=== PATIENT | female | born 1950 | race Caucasian/White ===

== ENCOUNTER 2019-06-14 20:43 | Inpatient (IN) | payer MEDICARE ==
[2019-06-14] MEDS ORDERED: EPINEPHrine/PF (1:1,000) 1 MG/1 ML INJ SUB-Q ONE (21:03)
[2019-06-14] MEDS ORDERED: ALBUTEROL 2.5 MG/3 ML NEBU IH ONE (21:03)
[2019-06-14] MEDS ORDERED: MIDAZOLAM 2 MG/2 ML INJ IV ONE (21:05)
--- NOTE | 2019-06-14 21:10 | Emergency Department Report ---
ED General Adult HPI - General Chief complaint: Dyspnea/Respdistress Stated complaint: PK Time Seen by Provider: 06/14/19 20:55 Source: patient, family, EMS (verbal report received from EMS. EMS documentation not available at time of chart dictation ), RN notes reviewed, old records reviewed Mode of arrival: Stretcher Limitations: Language Barrier, Physical Limitation - History of Present Illness Initial comments: Primary care Dr.: Dr. Morris The patient is a 68-year-old female. She has requested that family translated for her. She has a history of hypertension. Is no history of reactive airway disease at the family is aware of. She was seen by her primary care doctor earlier on today, for respiratory symptoms, given albuterol, Atrovent, and ceftriaxone. Apparently, patient has been having cough, wheezing and shortness of breath, going on for the past couple days. Shortly after being discharged from her primary care doctor's office, her cough and shortness of breath and wheezing got much worse. Emergency medical services were activated. Patient given albuterol, Atrovent, steroids, magnesium in the field. Upon arrival to the emergency room, patient is tachypneic and tachycardic and appears to be quite anxious. Family denies DVT and pulmonary embolism risk factors. Patient started on BiPAP. She then began to have coughing and posttussive emesis. Recommended switched to high flow high- humidity nasal cannula. Recommended additional medical therapy. After medical therapy and subcutaneous epinephrine, respiratory work greatly improved. Respiratory therapy s still looking to set up high flow high-humidity nasal cannula, however, patient doing clinically well on a nonrebreather with albuterol and Atrovent. Arterial blood gas showed pH of 7.3, PaCO2 in the 50s, PaO2 is 107 Patient looking improved clinically, work of breathing improved, she and family are medical to hospitalization. -: Gradual Quality: other Consistency: other Improves with: medication Worsens with: movement - Related Data Allergies Allergy/AdvReac Type Severity Reaction Status Date / Time aspirin Allergy Unknown Verified 06/14/19 21:28 codeine Allergy Unknown Verified 06/14/19 21:28 ED Review of Systems ROS: Stated complaint: PK Other details as noted in HPI Comment: Unobtainable due to pts medical conditions ED Past Medical Hx - Past Medical History Hx Hypertension: Yes Hx Diabetes: Yes Additional medical history: High Colesterol - Social History Smoking Status: Never Smoker Substance Use Type: None ED Physical Exam - General Limitations: Language Barrier General appearance: in no apparent distress, anxious, in distress, obese - Head Head exam: Present: atraumatic, normocephalic - Eye Eye exam: Present: normal appearance, EOMI - ENT ENT exam: Present: normal exam, normal orophraynx, mucous membranes moist, normal external ear exam - Neck Neck exam: Present: normal inspection, full ROM. Absent: tenderness, meningismus - Respiratory Respiratory exam: Present: wheezes, rhonchi, accessory muscle use. Absent: respiratory distress - Cardiovascular Cardiovascular Exam: Present: normal rhythm, tachycardia, normal heart sounds. Absent: systolic murmur, diastolic murmur, rubs, gallop - GI/Abdominal GI/Abdominal exam: Present: soft. Absent: distended, tenderness, guarding, rebound, rigid, pulsatile mass - Extremities Exam Extremities exam: Present: normal inspection, full ROM, other (2+ pulses noted in the bilateral upper and lower extremities. There is no palpable cord. negative Homans sign. Muscular compartments are soft. The pelvis is stable.). Absent: pedal edema, calf tenderness - Back Exam Back exam: Present: normal inspection, full ROM. Absent: tenderness, CVA tenderness (R), CVA tenderness (L), paraspinal tenderness, vertebral tenderness - Neurological Exam Neurological exam: Present: alert, other (there is no facial droop. Moving 4 extremities spontaneously.) - Psychiatric Psychiatric exam: Present: anxious - Skin Skin exam: Present: warm, dry, intact, normal color. Absent: rash ED Course Vital Signs 06/14/19 06/14/19 06/14/19 20:55 21:05 21:08 Temperature 98.6 F Pulse Rate 118 H Pulse Rate [ Bilateral Throughout] Respiratory 30 H 30 H Rate Respiratory Rate [Bilateral Throughout] Blood Pressure Blood Pressure 228/100 [Left] O2 Sat by Pulse 95 93 93 Oximetry 06/14/19 06/14/19 06/14/19 21:09 21:15 21:30 Temperature Pulse Rate 120 H 122 H 112 H Pulse Rate [ Bilateral Throughout] Respiratory 30 H 37 H 34 H Rate Respiratory Rate [Bilateral Throughout] Blood Pressure 212/116 166/91 Blood Pressure [Left] O2 Sat by Pulse 93 100 Oximetry 06/14/19 06/14/19 06/14/19 21:39 21:45 22:00 Temperature Pulse Rate 106 H 110 H Pulse Rate [ 107 H Bilateral Throughout] Respiratory 24 25 H Rate Respiratory 25 H Rate [Bilateral Throughout] Blood Pressure 162/81 154/83 Blood Pressure [Left] O2 Sat by Pulse 97 97 Oximetry 06/14/19 22:15 Temperature Pulse Rate 114 H Pulse Rate [ Bilateral Throughout] Respiratory 26 H Rate Respiratory Rate [Bilateral Throughout] Blood Pressure 136/67 Blood Pressure [Left] O2 Sat by Pulse Oximetry - Reevaluation(s) Reevaluation #1: 06/14/19 22:15 Patient likely has viral syndrome, and abnormal vital signs likely secondary to physiologic compensation to the aforementioned. Do not suspect bacteremia at this time, and at this point in time, do not believe patient will benefit from 30 mL/kg bolus of IV fluids. We will continue to provide supportive care. Gentle judicious fluids have been ordered. Reevaluation #2: 06/14/19 22:26 Dr Margie Foy to admit ED Medical Decision Making - Lab Data Result diagrams: 06/14/19 21:17 06/14/19 21:11 Vital Signs 06/14/19 06/14/19 06/14/19 20:55 21:05 21:08 Temperature 98.6 F Pulse Rate 118 H Pulse Rate [ Bilateral Throughout] Respiratory 30 H 30 H Rate Respiratory Rate [Bilateral Throughout] Blood Pressure Blood Pressure 228/100 [Left] O2 Sat by Pulse 95 93 93 Oximetry 06/14/19 06/14/19 06/14/19 21:09 21:15 21:30 Temperature Pulse Rate 120 H 122 H 112 H Pulse Rate [ Bilateral Throughout] Respiratory 30 H 37 H 34 H Rate Respiratory Rate [Bilateral Throughout] Blood Pressure 212/116 166/91 Blood Pressure [Left] O2 Sat by Pulse 93 100 Oximetry 06/14/19 21:39 Temperature Pulse Rate Pulse Rate [ 107 H Bilateral Throughout] Respiratory Rate Respiratory 25 H Rate [Bilateral Throughout] Blood Pressure Blood Pressure [Left] O2 Sat by Pulse Oximetry Lab Results 06/14/19 06/14/19 06/14/19 Range/Units 21:11 21:11 21:17 WBC 14.1 H (4.5-11.0) K/mm3 RBC 4.54 (3.65-5.03) M/mm3 Hgb 13.4 (10.1-14.3) gm/dl Hct 42.0 (30.3-42.9) % MCV 93 (79-97) fl MCH 30 (28-32) pg MCHC 32 (30-34) % RDW 15.4 H (13.2-15.2) % Plt Count 207 (140-440) K/mm3 Lymph % (Auto) 14.2 (13.4-35.0) % [place] % (Auto) 7.0 (0.0-7.3) % Eos % (Auto) 3.5 (0.0-4.3) % Baso % (Auto) 0.3 (0.0-1.8) % Lymph # 2.0 (1.2-5.4) K/mm3 [place] # 1.0 H (0.0-0.8) K/mm3 Eos # 0.5 H (0.0-0.4) K/mm3 Baso # 0.0 (0.0-0.1) K/mm3 Seg Neutrophils % 75.0 H (40.0-70.0) % Seg Neutrophils # 10.6 H (1.8-7.7) K/mm3 PT (12.2-14.9) Sec. INR (0.87-1.13) APTT (24.2-36.6) Sec. Sodium 138 (137-145) mmol/L Potassium 3.8 (3.6-5.0) mmol/L Chloride 98.7 (98-107) mmol/L Carbon Dioxide 22 (22-30) mmol/L Anion Gap 21 mmol/L BUN 20 H (7-17) mg/dL Creatinine 0.7 (0.7-1.2) mg/dL Estimated GFR > 60 ml/min BUN/Creatinine Ratio 29 % Glucose 304 H (65-100) mg/dL Lactic Acid 1.70 (0.7-2.0) mmol/L Calcium 8.7 (8.4-10.2) mg/dL Magnesium 3.30 H (1.7-2.3) mg/dL Total Bilirubin 0.50 (0.1-1.2) mg/dL AST 28 (5-40) units/L ALT 24 (7-56) units/L Alkaline Phosphatase 74 (35-129) units/L Total Creatine Kinase 442 H (30-135) units/L Troponin T (0.00-0.029) ng/mL Total Protein 8.4 H (6.3-8.2) g/dL Albumin 4.5 (3.9-5) g/dL Albumin/Globulin Ratio 1.2 % 06/14/19 06/14/19 Range/Units 21:17 21:17 WBC (4.5-11.0) K/mm3 RBC (3.65-5.03) M/mm3 Hgb (10.1-14.3) gm/dl Hct (30.3-42.9) % MCV (79-97) fl MCH (28-32) pg MCHC (30-34) % RDW (13.2-15.2) % Plt Count (140-440) K/mm3 Lymph % (Auto) (13.4-35.0) % [place] % (Auto) (0.0-7.3) % Eos % (Auto) (0.0-4.3) % Baso % (Auto) (0.0-1.8) % Lymph # (1.2-5.4) K/mm3 [place] # (0.0-0.8) K/mm3 Eos # (0.0-0.4) K/mm3 Baso # (0.0-0.1) K/mm3 Seg Neutrophils % (40.0-70.0) % Seg Neutrophils # (1.8-7.7) K/mm3 PT 13.7 (12.2-14.9) Sec. INR 1.04 (0.87-1.13) APTT 29.3 (24.2-36.6) Sec. Sodium (137-145) mmol/L Potassium (3.6-5.0) mmol/L Chloride (98-107) mmol/L Carbon Dioxide (22-30) mmol/L Anion Gap mmol/L BUN (7-17) mg/dL Creatinine (0.7-1.2) mg/dL Estimated GFR ml/min BUN/Creatinine Ratio % Glucose (65-100) mg/dL Lactic Acid (0.7-2.0) mmol/L Calcium (8.4-10.2) mg/dL Magnesium (1.7-2.3) mg/dL Total Bilirubin (0.1-1.2) mg/dL AST (5-40) units/L ALT (7-56) units/L Alkaline Phosphatase (35-129) units/L Total Creatine Kinase (30-135) units/L Troponin T < 0.010 (0.00-0.029) ng/mL Total Protein (6.3-8.2) g/dL Albumin (3.9-5) g/dL Albumin/Globulin Ratio % - EKG Data -: EKG Interpreted by [facility] EKG shows normal: sinus rhythm Rate: tachycardia - EKG Data When compared to previous EKG there are: previous EKG unavailable 06/14/19 22:11 There is no prior EKG available for comparison. The EKG shows a sinus tachycardia, 107 bpm, there is a left axis deviation, there is a QTC that is prolonged, there is a true enlargement, motion artifact, left ventricular hypertrophy, nonspecific T-wave abnormalities. No prior for comparison, EKG is not consistent with ST elevation infarction. - Radiology Data Radiology results: report reviewed, image reviewed Print Report Referring Physician: IRLANDA MCKAY Patient Name: ANTOINETTE RODRIGUEZ Date of : 1950 Sex: Female Report Date: 2019-06-14 Report Status: [place] [address] XRay Report Signed Patient: ANTOINETTE RODRIGUEZ MR# : [id number] : 1950 Acct:[id number] Age/Sex: 68 / F ADM Date: 06/14/19 Loc: ED Attending Dr: Ordering Physician: IRLANDA MCKAY MD Date of Service: 06/14/19 Procedure(s): XR chest 1V ap Accession Number(s): [id number] cc: IRLANDA MCKAY MD Fluoro Time In Minutes: CHEST 1 VIEW INDICATION: Dyspnea COMPARISON: None FINDINGS: Support devices: None Heart: Upper limits of normal to slightly enlarged Lungs/Pleura: No acute pulmonary or pleural findings. IMPRESSION: 1. Borderline cardiomegaly but no overt pulmonary edema or acute pulmonary disease. Signer Name: Homero Mena MD Signed: 06/14/2019 9:27 PM Workstation Name: [id number] Transcribed By: TM Dictated By: Homero Mena MD Electronically Authenticated By: Homero Mena MD Signed Date/Time: 06/14/192126 DD/ 25 - Medical Decision Making Differential diagnosis, including but not limited to: Bronchitis, pneumonia, reactive airway disease Assessment and plan: 68-year-old female with probable viral syndrome and reactive airway disease, requiring albuterol, Atrovent, BiPAP, requests for high flow high-humidity nasal cannula, and close airway observation. No pulmonary embolism or DVT risk factors. ABG reviewed and appreciated. Leukocytosis likely stress reaction secondary to aforementioned respiratory insult. Hospital physician is paged to arrange admission. Critical Care Time: Yes Critical care time in (mins) excluding proc time.: 35 Critical care attestation.: If time is entered above; I have spent that time in minutes in the direct care of this critically ill patient, excluding procedure time. ED Disposition Clinical Impression: Acute respiratory acidosis, Acute bronchitis Disposition: [id number] OP ADMIT IP TO THIS HOSP Is pt being admited?: Yes Condition: Serious Instructions: Acute Bronchitis (ED)
[2019-06-14] MEDS ORDERED: MIDAZOLAM 5 MG/5 ML INJ MDV IV ONE (21:21)
[2019-06-14] MEDS ORDERED: ONDANSETRON 4 MG/2 ML INJ ONE (21:22)
[2019-06-14 21:26] LABS: Basophils % (Auto) 0.3 % (0.0-1.8); Eosinophils # (Auto) 0.5 K/mm3 (0.0-0.4); Eosinophils % (Auto) 3.5 % (0.0-4.3); Hemoglobin 13.4 gm/dl (10.1-14.3); Lymphocytes % (Auto) 14.2 % (13.4-35.0); Mean Corpuscular HGB Conc 32 % (30-34); Mean Corpuscular Volume 93 fl (79-97); Platelet Count 207 K/mm3 (140-440); Red Blood Count 4.54 M/mm3 (3.65-5.03); Red Cell Distribution Width 15.4 % (13.2-15.2)
[2019-06-14] MEDS ORDERED: ONDANSETRON 4 MG/2 ML INJ IV ONE (21:29)
--- NOTE | 2019-06-14 21:31 | XRay Report ---
CHEST 1 VIEW INDICATION: Dyspnea COMPARISON: None FINDINGS: Support devices: None Heart: Upper limits of normal to slightly enlarged Lungs/Pleura: No acute pulmonary or pleural findings. IMPRESSION: 1. Borderline cardiomegaly but no overt pulmonary edema or acute pulmonary disease. Signer Name: Homero Mena MD Signed: 06/14/2019 9:27 PM Workstation Name: [id number]
[2019-06-14 21:40] LABS: INR 1.04 (0.87-1.13)
[2019-06-14 21:41] LABS: Partial Thromboplastin Time 29.3 Sec. (24.2-36.6)
[2019-06-14 21:43] LABS: Alanine Aminotransferase 24 units/L (7-56); Albumin 4.5 g/dL (3.9-5); BUN/Creatinine Ratio 29; Blood Urea Nitrogen 20 mg/dL (7-17); Calcium 8.7 mg/dL (8.4-10.2); Hemolysis Index 5
[2019-06-14] MEDS ORDERED: SODIUM CHLORIDE 0.9% 500 ML 500 ML IV ONE (22:10)
[2019-06-14] MEDS ORDERED: INSULIN REGULAR, HUMAN 100 UNITS/1 ML IV ONE (22:10)
[2019-06-14] MEDS ORDERED: SODIUM CHLORIDE 0.9% 1000 ML 1,000 ML ONE (22:23)
[2019-06-14] MEDS ORDERED: SODIUM CHLORIDE 0.9% 1000 ML 1,000 ML IV ONE (22:24)
[2019-06-14] MEDS ORDERED: IPRATROPIUM 0.02% NEBU 2.5 ML IH ONE ×2 (22:45→23:10)
--- NOTE | 2019-06-14 23:07 | History and Physical Report ---
History of Present Illness Date of examination: 06/14/19 History of present illness: 68-year-old woman with history of hypertension, diabetes, hyperlipidemia comes emergency room complaining of cough x2 weeks. She saw her primary care physician last week Friday who gave her steroids, breathing treatments. Daughter stated the patient did fine for a few days. On Friday her symptoms started again, she had audible wheezing, nonproductive cough, shortness of breath. She took her back to the primary care physician today, she was given 2 breathing treatments and sent home. When she got home that she deteriorated, EMS was called. Patient was given several treatments in the emergency room. PAtient desaturated when I saw her and she was placed on BiPAP. Patient is being admitted for respiratory distress Review of systems Constitutional: no weight loss, chills, fever Ears, eyes, nose, mouth and throat: no nasal congestion, no nasal discharge, no sinus pressure, no vision change, no red eye. Neck: No neck pain or rigidity. Cardiovascular: no palpitations, chest pain Respiratory: + cough, shortness of breath Gastrointestinal: no hematochezia, abdominal pain Genitourinary : no frequency , no hematuria Musculoskeletal: no joint swelling or muscle ache Integumentary: no rash, no pruritis Neurological: no parathesias, no focal weakness Endocrine: no cold or heat intolerance, no polyuria or polydipsia Hematologic/Lymphatic: no easy bruising, no easy bleeding, no gland swelling Allergic/Immunologic: no urticaria, no angioedema. PAST MEDICAL HISTORY: Hypertension, diabetes, hyperlipidemia PAST SURGICAL HISTORY: Hysterectomy SOCIAL HISTORY: Denies alcohol, drugs, tobacco FAMILY HISTORY: Hypertension Medications and Allergies Allergies Allergy/AdvReac Type Severity Reaction Status Date / Time aspirin Allergy Unknown Verified 06/14/19 21:28 codeine Allergy Unknown Verified 06/14/19 21:28 Home Medications Medication Instructions Recorded Confirmed Last Taken Type Losartan [Cozaar] 50 mg PO QDAY 06/15/19 06/15/19 Unknown History Pravastatin Sodium 40 mg PO DAILY 06/15/19 06/15/19 Unknown History Sitagliptin Phos/Metformin HCl 1 each PO BID 06/15/19 06/15/19 Unknown History [Janumet 50-500 mg Tablet] ALBUTEROL Inhaler (OR & NICU) 2 puff IH QID PRN #8.5 gram 06/17/19 Unknown Rx [ProAir HFA Inhaler] Acetaminophen [Acetaminophen TAB] 2 tab PO Q4H PRN #15 tablet 06/17/19 Unknown Rx Benzonatate [Tessalon Perles] 100 mg PO Q8HR PRN #15 capsule 06/17/19 Unknown Rx Budesonide [Pulmicort Respules] 0.5 mg IH Q12HRT 30 Days #30 nebu 06/17/19 Unknown Rx Linagliptin [Tradjenta] 5 mg PO QDAY tablet 06/17/19 Unknown Rx levoFLOXacin [Levaquin] 750 mg PO QDAY #7 tablet 06/17/19 Unknown Rx predniSONE [Deltasone] 1 dose PO QDAY #58 tab 06/17/19 Unknown Rx Active Meds: Active Medications Enoxaparin Sodium (Enoxaparin) 40 mg SUB-Q QDAY NADER Sodium Chloride (Nacl 0.9% 1000 Ml) 1,000 mls @ 999 mls/hr IV BOLUS ONE Stop: 06/14/19 23:24 Last Admin: 06/14/19 22:24 Dose: 999 mls/hr Documented by: Exam - Physical Exam Narrative exam: General Apperance: The patient lying in bed, breathing comfortable on BiPAP HEENT: Normocephalic, atraumatic. Pupils equally round and reactive to light, EOMI, no sclericterus or JVD or thyromegaly or nodule. , no carotid bruit, mucous membranes moist, no exudate or erythema Heart: S1-S2, regular is rhythm Lungs: wheezing, breathing comfortable Abdomen: Positive bowel sounds, soft, nontender, nondistended, no organomegaly Extremities: amputation of the left forearm, No edema cyanosis clubbing Skin: no rash, nodule, warm and dry Neuro: cranial nerves 2-12 intact, speech is fluent, motor/sensory intact - Constitutional Vitals: Temp Pulse Resp BP Pulse Ox 98.6 F 111 H 25 H 136/67 97 06/14/19 21:08 06/14/19 22:48 06/14/19 22:48 06/14/19 22:15 06/14/19 22:00 Results - Labs CBC & Chem 7: 06/17/19 05:31 06/17/19 05:31 Labs: Abnormal lab results 06/14/19 06/14/19 06/14/19 Range/Units 21:11 21:17 22:09 WBC 14.1 H (4.5-11.0) K/mm3 RDW 15.4 H (13.2-15.2) % [place] # 1.0 H (0.0-0.8) K/mm3 Eos # 0.5 H (0.0-0.4) K/mm3 Seg Neutrophils % 75.0 H (40.0-70.0) % Seg Neutrophils # 10.6 H (1.8-7.7) K/mm3 POC ABG pH 7.300 L (7.35-7.45) POC ABG pCO2 56.5 H (35-45) POC ABG pO2 107 H (80-105) BUN 20 H (7-17) mg/dL Glucose 304 H (65-100) mg/dL Magnesium 3.30 H (1.7-2.3) mg/dL Total Creatine Kinase 442 H (30-135) units/L Total Protein 8.4 H (6.3-8.2) g/dL - Imaging and Cardiology EKG: image reviewed Chest x-ray: report reviewed Assessment and Plan Assessment Acute respiratory failure/ Acute reactive airaway disease Continue BiPAP, breathing treatments Start high-dose steroids, levaquin, consult pulmonary Obtain CT chest, rule out pneumonia Diabetes Check fingersticks initiate insulin sliding scale Continue outpatient medications Hypertension Continue outpatient medications DVT prophylaxis
[2019-06-14] MEDS ORDERED: ONDANSETRON 4 MG/2 ML INJ IV PRN (23:08)
[2019-06-14] MEDS ORDERED: ACETAMINOPHEN 325 MG TAB PO PRN (23:08)
[2019-06-15] MEDS: methylPREDNISolone Sod Succinate 125 MG/2 ML INJ IV SCH ×4 (01:59→17:30)
[2019-06-15] MEDS: IPRATROPIUM 0.02% NEBU 2.5 ML IH SCH ×6 (03:33→20:22)
[2019-06-15 05:48] LABS: BUN/Creatinine Ratio 29; Blood Urea Nitrogen 20 mg/dL (7-17); Calcium 8.2 mg/dL (8.4-10.2); Hemolysis Index 11
[2019-06-15 08:35] LABS: Red Blood Count 4.01 M/mm3 (3.65-5.03)
[2019-06-15 08:36] LABS: Hematocrit 36.8 % (30.3-42.9); Mean Corpuscular HGB Conc 33 % (30-34); Mean Corpuscular Volume 92 fl (79-97); Platelet Count 163 K/mm3 (140-440); Red Cell Distribution Width 15.2 % (13.2-15.2)
[2019-06-15 09:15] LABS: Monocytes % (Manual) 0 % (0.0-7.3); Total Cells Counted 100
[2019-06-15 09:16] LABS: Basophils % (Manual) 0 % (0.0-1.8); Eosinophils % (Manual) 0 % (0.0-4.3); Platelet Estimate Consistent w Auto; RBC Morphology Normal
[2019-06-15 09:31] LABS: Monocytes # (Auto) 0.1 K/mm3 (0.0-0.8); Monocytes % (Auto) 0.6 % (0.0-7.3)
--- NOTE | 2019-06-15 09:33 | Cat Scan Report ---
CT chest wo con INDICATION / CLINICAL INFORMATION: hypoxia, sob. TECHNIQUE: Axial CT imaging of the thorax was obtained without contrast. Coronal and sagittal reformatted imagin g obtained and reviewed. All CT scans at this location are performed using CT dose reduction for ALA RA by means of automated exposure control. COMPARISON: Recent chest radiograph, 06/14/2019. FINDINGS: CT thorax without contrast does not demonstrate any mediastinal mass or significant adenopathy. Thora cic aorta is of normal caliber containing a small amount of calcified plaque. There is mild/moderate cardiomegaly without pericardial effusion. There is focal parenchymal disease in the left medial lower lobe, most likely pneumonia. There is a s econd small area of parenchymal disease in the posterior segment of the left upper lobe adjacent to t he major fissure. No associated pleural effusion. Very mild right basilar atelectasis. The remainder of the lungs are grossly clear. A tiny pneumatocele is present in the right upper lobe incidentally n oted and of no clinical significance. = Imaging obtained through the upper abdomen do not show acute abnormality. Moderate spondylitic changes are noted throughout the thoracic spine. IMPRESSION: 1. 2 areas of focal parenchymal disease are present in the left lung, as outlined above. The most lik jermain etiology is pneumonia. Radiographic follow-up is recommended to ensure areas resolve with medical therapy. Signer Name: Shannon Carmona MD Signed: 06/15/2019 9:29 AM Workstation Name: [id number]
[2019-06-15] MEDS: ENOXAPARIN 40 MG/0.4 ML INJ SUB-Q SCH (10:38)
--- NOTE | 2019-06-15 15:07 | Progress Note ---
Assessment and Plan Assessment and plan: Patient is a 68-year-old woman with history of hypertension, diabetes mellitus type 2, hyperlipidemia who presents to [facility] with SOB and cough x2 weeks. She saw her primary care physician last week Friday who gave her steroids, breathing treatments. Daughter stated the patient did fine for a few days. On Friday her symptoms started again, she had audible wheezing, nonproductive cough, shortness of breath. She took her back to the primary care physician today, she was given 2 breathing treatments and sent home. When she got home that she deteriorated, EMS was called. Patient was given several treatments in the emergency room. PAtient desaturated when I saw her and she was placed on BiPAP. Patient is being admitted for respiratory distress. * pCXR IMPRESSION: 1. Borderline cardiomegaly but no overt pulmonary edema or acute pulmonary disease. * CT chest without IMPRESSION: 1. 2 areas of focal parenchymal disease are present in the left lung, as outlined above. The most likely etiology is pneumonia. Radiographic follow-up is recommended to ensure areas resolve with medical therapy. Acute hypoxic respiratory failure due to LLL pneumonia weaned BiPAP and continue to wean O2, breathing treatments Start high-dose steroids, levaquin, consult pulmonary Obtain CT chest, rule out pneumonia LLL pneumonia failed outpatient therapy treat with ABX Diabetes mellitus type 2 Check fingersticks initiate insulin sliding scale Continue outpatient medications Hypertension Continue outpatient medications DVT prophylaxis History Interval history: Patient was seen and examined. Follow-up on current diagnosis SOB. No overnight events reported to me. Patient denies any chest pain, shortness breath, nausea/vomiting or severe headaches. Imaging, nursing note, chart, labs and old chart reviewed. Discussed with patient. Daughters Jose, Rimma and Maxwell with family friend Alyssa at bedside. Hospitalist Physical - Physical exam Narrative exam: Gen: ill appearing, NAD, Awake, Alert, Orientated HEENT: NCAT, EOMI, PERRL, OP Clear Neck: supple, no adenopathy, no thyromegaly, no JVD CVS/Heart: RRR, normal S1S2, pulses present bilaterally Chest/Lungs: Diminished BS bilateral, Symmetrical chest expansion, good air entry bilaterally GI/Abdomen: soft, NTND, good bowel sounds, no guarding or rebound /Bladder: no suprapubic tenderness, no CVA or paraspinal tenderness Extermity/Skin: no c/c/e, no obvious rash MSK: FROM x 4 Neuro: CN 2-12 grossly intact, no new focal deficits Psych: calm - Constitutional Vitals: Temp Pulse Resp BP Pulse Ox 98.0 F 88 20 154/60 93 06/15/19 13:39 06/15/19 13:39 06/15/19 13:39 06/15/19 13:39 06/15/19 13:39 Results - Labs CBC & Chem 7: 06/15/19 04:39 06/15/19 04:39 Labs: Laboratory Last Values WBC 9.1 K/mm3 (4.5-11.0) 06/15/19 04:39 RBC 4.01 M/mm3 (3.65-5.03) 06/15/19 04:39 Hgb 12.0 gm/dl (10.1-14.3) 06/15/19 04:39 Hct 36.8 % (30.3-42.9) 06/15/19 04:39 MCV 92 fl (79-97) 06/15/19 04:39 MCH 30 pg (28-32) 06/15/19 04:39 MCHC 33 % (30-34) 06/15/19 04:39 RDW 15.2 % (13.2-15.2) 06/15/19 04:39 Plt Count 163 K/mm3 (140-440) 06/15/19 04:39 Lymph % (Auto) 14.2 % (13.4-35.0) 06/14/19 21:17 [place] % (Auto) 0.6 % (0.0-7.3) 06/15/19 04:39 Eos % (Auto) 0.0 % (0.0-4.3) 06/15/19 04:39 Baso % (Auto) 0.3 % (0.0-1.8) 06/14/19 21:17 Lymph # 2.0 K/mm3 (1.2-5.4) 06/14/19 21:17 [place] # 0.1 K/mm3 (0.0-0.8) 06/15/19 04:39 Eos # 0.0 K/mm3 (0.0-0.4) 06/15/19 04:39 Baso # 0.0 K/mm3 (0.0-0.1) 06/15/19 04:39 Add Manual Diff Complete 06/15/19 04:39 Total Counted 100 06/15/19 04:39 Seg Neutrophils % 75.0 % (40.0-70.0) H 06/14/19 21:17 Seg Neuts % (Manual) 99.0 % (40.0-70.0) H 06/15/19 04:39 Band Neutrophils % 0 % 06/15/19 04:39 Lymphocytes % (Manual) 1.0 % (13.4-35.0) L 06/15/19 04:39 Reactive Lymphs % (Man) 0 % 06/15/19 04:39 Monocytes % (Manual) 0 % (0.0-7.3) 06/15/19 04:39 Eosinophils % (Manual) 0 % (0.0-4.3) 06/15/19 04:39 Basophils % (Manual) 0 % (0.0-1.8) 06/15/19 04:39 Metamyelocytes % 0 % 06/15/19 04:39 Myelocytes % 0 % 06/15/19 04:39 Promyelocytes % 0 % 06/15/19 04:39 Blast Cells % 0 % 06/15/19 04:39 Nucleated RBC % Not Reportable 06/15/19 04:39 Seg Neutrophils # 8.8 K/mm3 (1.8-7.7) H 06/15/19 04:39 Seg Neutrophils # Man 9.0 K/mm3 (1.8-7.7) H 06/15/19 04:39 Band Neutrophils # 0.0 K/mm3 06/15/19 04:39 Lymphocytes # (Manual) 0.1 K/mm3 (1.2-5.4) L 06/15/19 04:39 Abs React Lymphs (Man) 0.0 K/mm3 06/15/19 04:39 Monocytes # (Manual) 0.0 K/mm3 (0.0-0.8) 06/15/19 04:39 Eosinophils # (Manual) 0.0 K/mm3 (0.0-0.4) 06/15/19 04:39 Basophils # (Manual) 0.0 K/mm3 (0.0-0.1) 06/15/19 04:39 Metamyelocytes # 0.0 K/mm3 06/15/19 04:39 Myelocytes # 0.0 K/mm3 06/15/19 04:39 Promyelocytes # 0.0 K/mm3 06/15/19 04:39 Blast Cells # 0.0 K/mm3 06/15/19 04:39 WBC Morphology Not Reportable 06/15/19 04:39 Hypersegmented Neuts Not Reportable 06/15/19 04:39 Hyposegmented Neuts Not Reportable 06/15/19 04:39 Hypogranular Neuts Not Reportable 06/15/19 04:39 Smudge Cells Not Reportable 06/15/19 04:39 Toxic Granulation Not Reportable 06/15/19 04:39 Toxic Vacuolation Not Reportable 06/15/19 04:39 Dohle Bodies Not Reportable 06/15/19 04:39 Pelger-Huet Anomaly Not Reportable 06/15/19 04:39 Vic Rods Not Reportable 06/15/19 04:39 Platelet Estimate Consistent w auto 06/15/19 04:39 Clumped Platelets Not Reportable 06/15/19 04:39 Plt Clumps, EDTA Not Reportable 06/15/19 04:39 Large Platelets Not Reportable 06/15/19 04:39 Giant Platelets Not Reportable 06/15/19 04:39 Platelet Satelliting Not Reportable 06/15/19 04:39 Plt Morphology Comment Not Reportable 06/15/19 04:39 RBC Morphology Normal 06/15/19 04:39 Dimorphic RBCs Not Reportable 06/15/19 04:39 Polychromasia Not Reportable 06/15/19 04:39 Hypochromasia Not Reportable 06/15/19 04:39 Poikilocytosis Not Reportable 06/15/19 04:39 Anisocytosis Not Reportable 06/15/19 04:39 Microcytosis Not Reportable 06/15/19 04:39 Macrocytosis Not Reportable 06/15/19 04:39 Spherocytes Not Reportable 06/15/19 04:39 Pappenheimer Bodies Not Reportable 06/15/19 04:39 Sickle Cells Not Reportable 06/15/19 04:39 Target Cells Not Reportable 06/15/19 04:39 Tear Drop Cells Not Reportable 06/15/19 04:39 Ovalocytes Not Reportable 06/15/19 04:39 Helmet Cells Not Reportable 06/15/19 04:39 G[place] Bodies Not Reportable 06/15/19 04:39 [place] Rings Not Reportable 06/15/19 04:39 [place] Cells Not Reportable 06/15/19 04:39 Bite Cells Not Reportable 06/15/19 04:39 Crenated Cell Not Reportable 06/15/19 04:39 Elliptocytes Not Reportable 06/15/19 04:39 Acanthocytes (Spur) Not Reportable 06/15/19 04:39 Rouleaux Not Reportable 06/15/19 04:39 Hemoglobin C Crystals Not Reportable 06/15/19 04:39 Schistocytes Not Reportable 06/15/19 04:39 Malaria parasites Not Reportable 06/15/19 04:39 Jb Bodies Not Reportable 06/15/19 04:39 Hem Pathologist Commnt No 06/15/19 04:39 PT 13.7 Sec. (12.2-14.9) 06/14/19 21:17 INR 1.04 (0.87-1.13) 06/14/19 21:17 APTT 29.3 Sec. (24.2-36.6) 06/14/19 21:17 POC ABG pH 7.300 (7.35-7.45) L 06/14/19 22:09 POC ABG pCO2 56.5 (35-45) H 06/14/19 22:09 POC ABG pO2 107 (80-105) H 06/14/19 22:09 POC ABG HCO3 27.8 (22-26 mml/L) 06/14/19 22:09 POC ABG Total CO2 29 (23-27mmol/L) 06/14/19 22:09 POC ABG O2 Sat 97 06/14/19 22:09 POC ABG Base Excess 1 ((-2) - (+3)mmol/L) 06/14/19 22:09 FiO2 45 % 06/14/19 22:09 Sodium 141 mmol/L (137-145) 06/15/19 04:39 Potassium 4.2 mmol/L (3.6-5.0) 06/15/19 04:39 Chloride 103.9 mmol/L (98-107) 06/15/19 04:39 Carbon Dioxide 21 mmol/L (22-30) L 06/15/19 04:39 Anion Gap 20 mmol/L 06/15/19 04:39 BUN 20 mg/dL (7-17) H 06/15/19 04:39 Creatinine 0.7 mg/dL (0.7-1.2) 06/15/19 04:39 Estimated GFR > 60 ml/min 06/15/19 04:39 BUN/Creatinine Ratio 29 % 06/15/19 04:39 Glucose 177 mg/dL (65-100) H 06/15/19 04:39 POC Glucose 284 (70-105) H 06/15/19 11:34 Lactic Acid 1.70 mmol/L (0.7-2.0) 06/14/19 21:11 Calcium 8.2 mg/dL (8.4-10.2) L 06/15/19 04:39 Magnesium 3.30 mg/dL (1.7-2.3) H 06/14/19 21:11 Total Bilirubin 0.50 mg/dL (0.1-1.2) 06/14/19 21:11 AST 28 units/L (5-40) 06/14/19 21:11 ALT 24 units/L (7-56) 06/14/19 21:11 Alkaline Phosphatase 74 units/L (35-129) 06/14/19 21:11 Total Creatine Kinase 442 units/L (30-135) H 06/14/19 21:11 Troponin T < 0.010 ng/mL (0.00-0.029) 06/14/19 21:17 Total Protein 8.4 g/dL (6.3-8.2) H 06/14/19 21:11 Albumin 4.5 g/dL (3.9-5) 06/14/19 21:11 Albumin/Globulin Ratio 1.2 % 06/14/19 21:11 Active Medications - Current Medications Current Medications: Generic Name Dose Route Start Last Admin Trade Name Freq PRN Reason Stop Dose Admin Acetaminophen 650 mg 06/14/19 23:08 Tylenol PO Q4H PRN Pain MILD(1-3)/Fever >100.5/PAZ Enoxaparin Sodium 40 mg 06/15/19 10:00 06/15/19 10:38 Enoxaparin SUB-Q 40 mg QDAY NADER Administration Levofloxacin/Dextrose 500 mg in 100 mls @ 100 mls/hr 06/15/19 10:00 06/15/19 10:37 Levaquin 500mg/100ml IV 100 mls/hr Q24HR NADER Administration Protocol Ipratropium [place] 0.5 mg 06/14/19 23:10 06/15/19 13:19 Atrovent IH 0.5 mg Q4HRT NADER Administration Methylprednisolone Sodium Succinate 125 mg 06/14/19 23:09 06/15/19 12:18 Solu-Medrol IV 125 mg Q6HR NADER Administration Ondansetron HCl 4 mg 06/14/19 23:08 Zofran IV Q8H PRN Nausea And Vomiting Sodium Chloride 10 ml 06/15/19 10:00 06/15/19 10:38 Sodium Chloride Flush Syringe 10 Ml IV 10 ml BID NADER Administration Sodium Chloride 10 ml 06/14/19 23:08 Sodium Chloride Flush Syringe 10 Ml IV PRN PRN LINE FLUSH
[2019-06-15] MEDS ORDERED: DEXTROSE 50% IN WATER (25GM) 50 ML SYRINGE IV PRN (16:36)
[2019-06-15] MEDS: metFORMIN 500 MG TAB PO SCH (17:23)
[2019-06-15] MEDS: LOSARTAN 50 MG TAB PO SCH (17:23)
--- NOTE | 2019-06-15 18:37 | Consultation ---
History of Present Illness Consult date: 06/15/19 Requesting physician: YANELIS CARDENAS Reason for consult: hypoxemia Medications and Allergies Allergies Allergy/AdvReac Type Severity Reaction Status Date / Time aspirin Allergy Unknown Verified 06/14/19 21:28 codeine Allergy Unknown Verified 06/14/19 21:28 Home Medications Medication Instructions Recorded Confirmed Last Taken Type Albuterol Sulfate 1 INHALATION Q4H PRN 06/15/19 Unknown History Azithromycin [Zithromax] 250 mg PO DAILY 06/15/19 06/15/19 Unknown History Losartan [Cozaar] 50 mg PO QDAY 06/15/19 06/15/19 Unknown History Pravastatin Sodium 40 mg PO DAILY 06/15/19 06/15/19 Unknown History Sitagliptin Phos/Metformin HCl 1 each PO BID 06/15/19 06/15/19 Unknown History [Janumet 50-500 mg Tablet] Active Meds: Active Medications Acetaminophen (Tylenol) 650 mg PO Q4H PRN PRN Reason: Pain MILD(1-3)/Fever >100.5/PAZ Dextrose (D50w (25gm) Syringe) 50 ml IV Q30MIN PRN; Protocol PRN Reason: Hypoglycemia Enoxaparin Sodium (Enoxaparin) 40 mg SUB-Q QDAY NADER Last Admin: 06/15/19 10:38 Dose: 40 mg Documented by: Levofloxacin/Dextrose (Levaquin 500mg/100ml) 500 mg in 100 mls @ 100 mls/hr IV Q24HR NADER; Protocol Last Admin: 06/15/19 10:37 Dose: 100 mls/hr Documented by: Insulin Human Lispro (Humalog) 0 unit SUB-Q ACHS NADER; Protocol Ipratropium [place] (Atrovent) 0.5 mg IH Q4HRT NADER Last Admin: 06/15/19 16:59 Dose: 0.5 mg Documented by: Linagliptin (Tradjenta) 5 mg PO QDAY NADER Losartan Potassium (Cozaar) 50 mg PO QDAY [facility] Last Admin: 06/15/19 17:23 Dose: 50 mg Documented by: Metformin HCl (Glucophage) 500 mg PO BIDDIAB [facility] Last Admin: 06/15/19 17:23 Dose: 500 mg Documented by: Methylprednisolone Sodium Succinate (Solu-Medrol) 125 mg IV Q6HR NADER Last Admin: 06/15/19 17:30 Dose: 125 mg Documented by: Ondansetron HCl (Zofran) 4 mg IV Q8H PRN PRN Reason: Nausea And Vomiting Pravastatin Sodium (Pravachol) 40 mg PO QHS [facility] Sodium Chloride (Sodium Chloride Flush Syringe 10 Ml) 10 ml IV BID NADER Last Admin: 06/15/19 10:38 Dose: 10 ml Documented by: Sodium Chloride (Sodium Chloride Flush Syringe 10 Ml) 10 ml IV PRN PRN PRN Reason: LINE FLUSH Last Admin: 06/15/19 17:32 Dose: 10 ml Documented by: Physical Examination Vital signs: Vital Signs Pulse Ox 95 06/14/19 20:55 Results - Laboratory Findings CBC and BMP: 06/15/19 04:39 06/15/19 04:39 ABG POC ABG pH 7.300 (7.35-7.45) L 06/14/19 22:09 POC ABG pCO2 56.5 (35-45) H 06/14/19 22:09 POC ABG pO2 107 (80-105) H 06/14/19 22:09 POC ABG HCO3 27.8 (22-26 mml/L) 06/14/19 22:09 POC ABG Total CO2 29 (23-27mmol/L) 06/14/19 22:09 POC ABG O2 Sat 97 06/14/19 22:09 PT/INR, D-dimer PT 13.7 Sec. (12.2-14.9) 06/14/19 21:17 INR 1.04 (0.87-1.13) 06/14/19 21:17 Abnormal lab findings: Abnormal Labs 06/14/19 06/14/19 06/14/19 21:11 21:17 22:09 WBC 14.1 H RDW 15.4 H [place] # 1.0 H Eos # 0.5 H Seg Neutrophils % 75.0 H Seg Neuts % (Manual) Lymphocytes % (Manual) Seg Neutrophils # 10.6 H Seg Neutrophils # Man Lymphocytes # (Manual) POC ABG pH 7.300 L POC ABG pCO2 56.5 H POC ABG pO2 107 H Carbon Dioxide BUN 20 H Glucose 304 H POC Glucose Calcium Magnesium 3.30 H Total Creatine Kinase 442 H Total Protein 8.4 H 06/15/19 06/15/19 06/15/19 04:39 04:39 07:12 WBC RDW [place] # Eos # Seg Neutrophils % Seg Neuts % (Manual) 99.0 H Lymphocytes % (Manual) 1.0 L Seg Neutrophils # 8.8 H Seg Neutrophils # Man 9.0 H Lymphocytes # (Manual) 0.1 L POC ABG pH POC ABG pCO2 POC ABG pO2 Carbon Dioxide 21 L BUN 20 H Glucose 177 H POC Glucose 174 H Calcium 8.2 L Magnesium Total Creatine Kinase Total Protein 06/15/19 06/15/19 11:34 16:32 WBC RDW [place] # Eos # Seg Neutrophils % Seg Neuts % (Manual) Lymphocytes % (Manual) Seg Neutrophils # Seg Neutrophils # Man Lymphocytes # (Manual) POC ABG pH POC ABG pCO2 POC ABG pO2 Carbon Dioxide BUN Glucose POC Glucose 284 H 194 H Calcium Magnesium Total Creatine Kinase Total Protein
[2019-06-15] MEDS ORDERED: SITAGLIPTIN PHOS PO SCH (22:00)
[2019-06-15] MEDS ORDERED: METFORMIN HCL PO SCH (22:00)
[2019-06-15] MEDS: PRAVASTATIN 40 MG TAB PO SCH (22:50)
[2019-06-15] MEDS: INSULIN LISPRO 100 UNIT/ML SUB-Q SCH (22:50)
[2019-06-16] MEDS: methylPREDNISolone Sod Succinate 125 MG/2 ML INJ IV SCH ×5 (00:03→22:17)
[2019-06-16] MEDS: IPRATROPIUM 0.02% NEBU 2.5 ML IH SCH ×6 (00:54→20:59)
[2019-06-16] MEDS: INSULIN LISPRO 100 UNIT/ML SUB-Q SCH ×4 (08:17→22:15)
[2019-06-16] MEDS: metFORMIN 500 MG TAB PO SCH ×2 (08:17→18:19)
[2019-06-16] MEDS: ENOXAPARIN 40 MG/0.4 ML INJ SUB-Q SCH (09:37)
[2019-06-16] MEDS: LINAGLIPTIN 5 MG TAB PO SCH (09:37)
[2019-06-16] MEDS: LOSARTAN 50 MG TAB PO SCH (09:37)
--- NOTE | 2019-06-16 12:57 | Progress Note ---
Assessment and Plan 68 y/o female with pneumonia, concern for COPD vs asthma exacerbation. 1. Will change steroids to 60q8 2. Will add BID pulmicort therapy 3. Will need outpatient follow up for Full PFT 4. Agree with continued abx. Will likely need 10 days. Subjective Date of service: 06/16/19 Interval history: no use of PPV last night. Sats good on nasal cannula. Objective Vital Signs - 12hr 06/16/19 06/16/19 06/16/19 02:21 04:00 07:17 Temperature 98.4 F 98.4 F Pulse Rate 72 77 Pulse Rate [ 94 H Bilateral Throughout] Respiratory 18 20 Rate Respiratory 18 Rate [Bilateral Throughout] Blood Pressure 122/46 150/68 O2 Sat by Pulse 95 96 Oximetry 06/16/19 08:59 Temperature Pulse Rate Pulse Rate [ Bilateral Throughout] Respiratory 20 Rate Respiratory Rate [Bilateral Throughout] Blood Pressure O2 Sat by Pulse Oximetry CBC and BMP: 06/15/19 04:39 06/15/19 04:39 ABG, PT/INR, D-dimer: ABG POC ABG pH 7.300 (7.35-7.45) L 06/14/19 22:09 POC ABG pCO2 56.5 (35-45) H 06/14/19 22:09 POC ABG pO2 107 (80-105) H 06/14/19 22:09 POC ABG HCO3 27.8 (22-26 mml/L) 06/14/19 22:09 POC ABG Total CO2 29 (23-27mmol/L) 06/14/19 22:09 POC ABG O2 Sat 97 06/14/19 22:09 PT/INR, D-dimer PT 13.7 Sec. (12.2-14.9) 06/14/19 21:17 INR 1.04 (0.87-1.13) 06/14/19 21:17 Abnormal lab findings: Abnormal Labs 06/14/19 06/14/19 06/14/19 21:11 21:17 22:09 WBC 14.1 H RDW 15.4 H [place] # 1.0 H Eos # 0.5 H Seg Neutrophils % 75.0 H Seg Neuts % (Manual) Lymphocytes % (Manual) Seg Neutrophils # 10.6 H Seg Neutrophils # Man Lymphocytes # (Manual) POC ABG pH 7.300 L POC ABG pCO2 56.5 H POC ABG pO2 107 H Carbon Dioxide BUN 20 H Glucose 304 H POC Glucose Calcium Magnesium 3.30 H Total Creatine Kinase 442 H NT-Pro-B Natriuret Pep Total Protein 8.4 H 06/15/19 06/15/19 06/15/19 04:39 04:39 07:12 WBC RDW [place] # Eos # Seg Neutrophils % Seg Neuts % (Manual) 99.0 H Lymphocytes % (Manual) 1.0 L Seg Neutrophils # 8.8 H Seg Neutrophils # Man 9.0 H Lymphocytes # (Manual) 0.1 L POC ABG pH POC ABG pCO2 POC ABG pO2 Carbon Dioxide 21 L BUN 20 H Glucose 177 H POC Glucose 174 H Calcium 8.2 L Magnesium Total Creatine Kinase NT-Pro-B Natriuret Pep Total Protein 06/15/19 06/15/19 06/15/19 11:34 16:32 19:40 WBC RDW [place] # Eos # Seg Neutrophils % Seg Neuts % (Manual) Lymphocytes % (Manual) Seg Neutrophils # Seg Neutrophils # Man Lymphocytes # (Manual) POC ABG pH POC ABG pCO2 POC ABG pO2 Carbon Dioxide BUN Glucose POC Glucose 284 H 194 H Calcium Magnesium Total Creatine Kinase NT-Pro-B Natriuret Pep 3004 H Total Protein 06/15/19 06/16/19 06/16/19 20:51 07:18 11:43 WBC RDW [place] # Eos # Seg Neutrophils % Seg Neuts % (Manual) Lymphocytes % (Manual) Seg Neutrophils # Seg Neutrophils # Man Lymphocytes # (Manual) POC ABG pH POC ABG pCO2 POC ABG pO2 Carbon Dioxide BUN Glucose POC Glucose 325 H 167 H 237 H Calcium Magnesium Total Creatine Kinase NT-Pro-B Natriuret Pep Total Protein
--- NOTE | 2019-06-16 18:31 | Progress Note ---
Assessment and Plan Assessment and plan: Patient is a 68-year-old woman with history of hypertension, diabetes mellitus type 2, hyperlipidemia who presents to [facility] ED with SOB and cough x2 weeks. She saw her primary care physician last week Friday who gave her steroids, breathing treatments. Daughter stated the patient did fine for a few days. On Friday her symptoms started again, she had audible wheezing, nonproductive cough, shortness of breath. She took her back to the primary care physician today, she was given 2 breathing treatments and sent home. When she got home that she deteriorated, EMS was called. Patient was given several treatments in the emergency room. PAtient desaturated when I saw her and she was placed on BiPAP. Patient is being admitted for respiratory failure. * pCXR IMPRESSION: 1. Borderline cardiomegaly but no overt pulmonary edema or acute pulmonary disease. * CT chest without IMPRESSION: 1. 2 areas of focal parenchymal disease are present in the left lung, as outlined above. The most likely etiology is pneumonia. Radiographic follow-up is recommended to ensure areas resolve with medical therapy. Acute hypoxic respiratory failure due to LLL pneumonia weaned BiPAP and continue to wean O2, breathing treatments Start high-dose steroids, levaquin, consult pulmonary Obtain CT chest, rule out pneumonia LLL pneumonia failed outpatient therapy treat with ABX Diabetes mellitus type 2 Check fingersticks initiate insulin sliding scale Continue outpatient medications Hypertension Continue outpatient medications DVT prophylaxis Disposition: continue inpatient care, trying to wean O2 History Interval history: Patient was seen and examined. Follow-up on current diagnosis SOB. No overnight events reported to me. Patient denies any chest pain, shortness breath, nausea/vomiting or severe headaches. Imaging, nursing note, chart, labs and old chart reviewed. Discussed with patient. Daughters Jose, Rimma not present but daughter Marcio present at bedside Hospitalist Physical - Physical exam Narrative exam: Gen: ill appearing, NAD, Awake, Alert, Orientated HEENT: NCAT, EOMI, PERRL, OP Clear Neck: supple, no adenopathy, no thyromegaly, no JVD CVS/Heart: RRR, normal S1S2, pulses present bilaterally Chest/Lungs: Diminished BS bilateral, Symmetrical chest expansion, good air entry bilaterally GI/Abdomen: soft, NTND, good bowel sounds, no guarding or rebound /Bladder: no suprapubic tenderness, no CVA or paraspinal tenderness Extermity/Skin: no c/c/e, no obvious rash MSK: FROM x 4 Neuro: CN 2-12 grossly intact, no new focal deficits Psych: calm - Constitutional Vitals: Temp Pulse Resp BP Pulse Ox 98.4 F 88 20 134/47 95 06/16/19 07:17 06/16/19 13:19 06/16/19 10:00 06/16/19 13:19 06/16/19 13:19 Results - Labs CBC & Chem 7: 06/15/19 04:39 06/15/19 04:39 Labs: Laboratory Last Values WBC 9.1 K/mm3 (4.5-11.0) 06/15/19 04:39 RBC 4.01 M/mm3 (3.65-5.03) 06/15/19 04:39 Hgb 12.0 gm/dl (10.1-14.3) 06/15/19 04:39 Hct 36.8 % (30.3-42.9) 06/15/19 04:39 MCV 92 fl (79-97) 06/15/19 04:39 MCH 30 pg (28-32) 06/15/19 04:39 MCHC 33 % (30-34) 06/15/19 04:39 RDW 15.2 % (13.2-15.2) 06/15/19 04:39 Plt Count 163 K/mm3 (140-440) 06/15/19 04:39 Lymph % (Auto) 14.2 % (13.4-35.0) 06/14/19 21:17 [place] % (Auto) 0.6 % (0.0-7.3) 06/15/19 04:39 Eos % (Auto) 0.0 % (0.0-4.3) 06/15/19 04:39 Baso % (Auto) 0.3 % (0.0-1.8) 06/14/19 21:17 Lymph # 2.0 K/mm3 (1.2-5.4) 06/14/19 21:17 [place] # 0.1 K/mm3 (0.0-0.8) 06/15/19 04:39 Eos # 0.0 K/mm3 (0.0-0.4) 06/15/19 04:39 Baso # 0.0 K/mm3 (0.0-0.1) 06/15/19 04:39 Add Manual Diff Complete 06/15/19 04:39 Total Counted 100 06/15/19 04:39 Seg Neutrophils % 75.0 % (40.0-70.0) H 06/14/19 21:17 Seg Neuts % (Manual) 99.0 % (40.0-70.0) H 06/15/19 04:39 Band Neutrophils % 0 % 06/15/19 04:39 Lymphocytes % (Manual) 1.0 % (13.4-35.0) L 06/15/19 04:39 Reactive Lymphs % (Man) 0 % 06/15/19 04:39 Monocytes % (Manual) 0 % (0.0-7.3) 06/15/19 04:39 Eosinophils % (Manual) 0 % (0.0-4.3) 06/15/19 04:39 Basophils % (Manual) 0 % (0.0-1.8) 06/15/19 04:39 Metamyelocytes % 0 % 06/15/19 04:39 Myelocytes % 0 % 06/15/19 04:39 Promyelocytes % 0 % 06/15/19 04:39 Blast Cells % 0 % 06/15/19 04:39 Nucleated RBC % Not Reportable 06/15/19 04:39 Seg Neutrophils # 8.8 K/mm3 (1.8-7.7) H 06/15/19 04:39 Seg Neutrophils # Man 9.0 K/mm3 (1.8-7.7) H 06/15/19 04:39 Band Neutrophils # 0.0 K/mm3 06/15/19 04:39 Lymphocytes # (Manual) 0.1 K/mm3 (1.2-5.4) L 06/15/19 04:39 Abs React Lymphs (Man) 0.0 K/mm3 06/15/19 04:39 Monocytes # (Manual) 0.0 K/mm3 (0.0-0.8) 06/15/19 04:39 Eosinophils # (Manual) 0.0 K/mm3 (0.0-0.4) 06/15/19 04:39 Basophils # (Manual) 0.0 K/mm3 (0.0-0.1) 06/15/19 04:39 Metamyelocytes # 0.0 K/mm3 06/15/19 04:39 Myelocytes # 0.0 K/mm3 06/15/19 04:39 Promyelocytes # 0.0 K/mm3 06/15/19 04:39 Blast Cells # 0.0 K/mm3 06/15/19 04:39 WBC Morphology Not Reportable 06/15/19 04:39 Hypersegmented Neuts Not Reportable 06/15/19 04:39 Hyposegmented Neuts Not Reportable 06/15/19 04:39 Hypogranular Neuts Not Reportable 06/15/19 04:39 Smudge Cells Not Reportable 06/15/19 04:39 Toxic Granulation Not Reportable 06/15/19 04:39 Toxic Vacuolation Not Reportable 06/15/19 04:39 Dohle Bodies Not Reportable 06/15/19 04:39 Pelger-Huet Anomaly Not Reportable 06/15/19 04:39 Vic Rods Not Reportable 06/15/19 04:39 Platelet Estimate Consistent w auto 06/15/19 04:39 Clumped Platelets Not Reportable 06/15/19 04:39 Plt Clumps, EDTA Not Reportable 06/15/19 04:39 Large Platelets Not Reportable 06/15/19 04:39 Giant Platelets Not Reportable 06/15/19 04:39 Platelet Satelliting Not Reportable 06/15/19 04:39 Plt Morphology Comment Not Reportable 06/15/19 04:39 RBC Morphology Normal 06/15/19 04:39 Dimorphic RBCs Not Reportable 06/15/19 04:39 Polychromasia Not Reportable 06/15/19 04:39 Hypochromasia Not Reportable 06/15/19 04:39 Poikilocytosis Not Reportable 06/15/19 04:39 Anisocytosis Not Reportable 06/15/19 04:39 Microcytosis Not Reportable 06/15/19 04:39 Macrocytosis Not Reportable 06/15/19 04:39 Spherocytes Not Reportable 06/15/19 04:39 Pappenheimer Bodies Not Reportable 06/15/19 04:39 Sickle Cells Not Reportable 06/15/19 04:39 Target Cells Not Reportable 06/15/19 04:39 Tear Drop Cells Not Reportable 06/15/19 04:39 Ovalocytes Not Reportable 06/15/19 04:39 Helmet Cells Not Reportable 06/15/19 04:39 [place] Bodies Not Reportable 06/15/19 04:39 [place] Rings Not Reportable 06/15/19 04:39 [place] Cells Not Reportable 06/15/19 04:39 Bite Cells Not Reportable 06/15/19 04:39 Crenated Cell Not Reportable 06/15/19 04:39 Elliptocytes Not Reportable 06/15/19 04:39 Acanthocytes (Spur) Not Reportable 06/15/19 04:39 Rouleaux Not Reportable 06/15/19 04:39 Hemoglobin C Crystals Not Reportable 06/15/19 04:39 Schistocytes Not Reportable 06/15/19 04:39 Malaria parasites Not Reportable 06/15/19 04:39 Jb Bodies Not Reportable 06/15/19 04:39 Hem Pathologist Commnt No 06/15/19 04:39 PT 13.7 Sec. (12.2-14.9) 06/14/19 21:17 INR 1.04 (0.87-1.13) 06/14/19 21:17 APTT 29.3 Sec. (24.2-36.6) 06/14/19 21:17 POC ABG pH 7.300 (7.35-7.45) L 06/14/19 22:09 POC ABG pCO2 56.5 (35-45) H 06/14/19 22:09 POC ABG pO2 107 (80-105) H 06/14/19 22:09 POC ABG HCO3 27.8 (22-26 mml/L) 06/14/19 22:09 POC ABG Total CO2 29 (23-27mmol/L) 06/14/19 22:09 POC ABG O2 Sat 97 06/14/19 22:09 POC ABG Base Excess 1 ((-2) - (+3)mmol/L) 06/14/19 22:09 FiO2 45 % 06/14/19 22:09 Sodium 141 mmol/L (137-145) 06/15/19 04:39 Potassium 4.2 mmol/L (3.6-5.0) 06/15/19 04:39 Chloride 103.9 mmol/L (98-107) 06/15/19 04:39 Carbon Dioxide 21 mmol/L (22-30) L 06/15/19 04:39 Anion Gap 20 mmol/L 06/15/19 04:39 BUN 20 mg/dL (7-17) H 06/15/19 04:39 Creatinine 0.7 mg/dL (0.7-1.2) 06/15/19 04:39 Estimated GFR > 60 ml/min 06/15/19 04:39 BUN/Creatinine Ratio 29 % 06/15/19 04:39 Glucose 177 mg/dL (65-100) H 06/15/19 04:39 POC Glucose 148 (70-105) H 06/16/19 16:28 Lactic Acid 1.70 mmol/L (0.7-2.0) 06/14/19 21:11 Calcium 8.2 mg/dL (8.4-10.2) L 06/15/19 04:39 Magnesium 3.30 mg/dL (1.7-2.3) H 06/14/19 21:11 Total Bilirubin 0.50 mg/dL (0.1-1.2) 06/14/19 21:11 AST 28 units/L (5-40) 06/14/19 21:11 ALT 24 units/L (7-56) 06/14/19 21:11 Alkaline Phosphatase 74 units/L (35-129) 06/14/19 21:11 Total Creatine Kinase 442 units/L (30-135) H 06/14/19 21:11 Troponin T < 0.010 ng/mL (0.00-0.029) 06/14/19 21:17 NT-Pro-B Natriuret Pep 3004 pg/mL (0-900) H 06/15/19 19:40 Total Protein 8.4 g/dL (6.3-8.2) H 06/14/19 21:11 Albumin 4.5 g/dL (3.9-5) 06/14/19 21:11 Albumin/Globulin Ratio 1.2 % 06/14/19 21:11 Active Medications - Current Medications Current Medications: Generic Name Dose Route Start Last Admin Trade Name Freq PRN Reason Stop Dose Admin Acetaminophen 650 mg 06/14/19 23:08 Tylenol PO Q4H PRN Pain MILD(1-3)/Fever >100.5/PAZ Budesonide 0.5 mg 06/16/19 20:00 Pulmicort IH Q12HRT NADER Dextrose 50 ml 06/15/19 16:36 D50w (25gm) Syringe IV Q30MIN PRN Hypoglycemia Protocol Enoxaparin Sodium 40 mg 06/15/19 10:00 06/16/19 09:37 Enoxaparin SUB-Q 40 mg QDAY NADER Administration Levofloxacin/Dextrose 500 mg in 100 mls @ 100 mls/hr 06/15/19 10:00 06/16/19 09:37 Levaquin 500mg/100ml IV 100 mls/hr Q24HR NADER Administration Protocol Insulin Human Lispro 0 unit 06/15/19 22:00 06/16/19 16:30 Humalog SUB-Q Not Given A[facility]S [facility] Protocol Ipratropium [place] 0.5 mg 06/14/19 23:10 06/16/19 13:35 Atrovent IH 0.5 mg Q4HRT NADER Administration Linagliptin 5 mg 06/16/19 10:00 06/16/19 09:37 Tradjenta PO 5 mg QDAY NADER Administration Losartan Potassium 50 mg 06/15/19 17:00 06/16/19 09:37 Cozaar PO 50 mg QDAY NADER Administration Metformin HCl 500 mg 06/15/19 17:00 06/16/19 18:19 Glucophage PO 500 mg BIDDIAB NADER Administration Methylprednisolone Sodium Succinate 60 mg 06/16/19 14:00 06/16/19 15:11 Solu-Medrol IV 60 mg Q8HR NADER Administration Ondansetron HCl 4 mg 06/14/19 23:08 Zofran IV Q8H PRN Nausea And Vomiting Pravastatin Sodium 40 mg 06/15/19 22:00 06/15/19 22:50 Pravachol PO 40 mg QHS NADER Administration Sodium Chloride 10 ml 06/15/19 10:00 06/16/19 09:38 Sodium Chloride Flush Syringe 10 Ml IV 10 ml BID NADER Administration Sodium Chloride 10 ml 06/14/19 23:08 06/15/19 17:32 Sodium Chloride Flush Syringe 10 Ml IV 10 ml PRN PRN Administration LINE FLUSH
[2019-06-16] MEDS: BUDESONIDE 0.5 MG/2 ML NEBU IH SCH (20:59)
[2019-06-16] MEDS: PRAVASTATIN 40 MG TAB PO SCH (22:18)
[2019-06-17] MEDS: IPRATROPIUM 0.02% NEBU 2.5 ML IH SCH ×3 (02:20→14:53)
[2019-06-17 05:51] LABS: Hematocrit 36.3 % (30.3-42.9); Mean Corpuscular HGB Conc 33 % (30-34); Mean Corpuscular Volume 91 fl (79-97); Platelet Count 159 K/mm3 (140-440); Red Blood Count 4.01 M/mm3 (3.65-5.03); Red Cell Distribution Width 14.9 % (13.2-15.2)
[2019-06-17 06:24] LABS: BUN/Creatinine Ratio 35; Blood Urea Nitrogen 28 mg/dL (7-17); Calcium 8.5 mg/dL (8.4-10.2); Hemolysis Index 10
[2019-06-17] MEDS: methylPREDNISolone Sod Succinate 125 MG/2 ML INJ IV SCH ×2 (06:32→13:22)
[2019-06-17] MEDS: BUDESONIDE 0.5 MG/2 ML NEBU IH SCH (07:48)
[2019-06-17] MEDS: INSULIN LISPRO 100 UNIT/ML SUB-Q SCH ×2 (08:23→13:22)
[2019-06-17] MEDS: metFORMIN 500 MG TAB PO SCH (08:23)
[2019-06-17] MEDS: LINAGLIPTIN 5 MG TAB PO SCH (09:41)
[2019-06-17] MEDS: ENOXAPARIN 40 MG/0.4 ML INJ SUB-Q SCH (09:41)
[2019-06-17] MEDS: LOSARTAN 50 MG TAB PO SCH (09:41)
--- NOTE | 2019-06-17 12:19 | Progress Note ---
Assessment and Plan 68 y/o female with pneumonia, concern for COPD vs asthma exacerbation. 1. Continue steroids at 60q8, can change to 60 daily at discharge and tape over 2 week time span from there. 2. Continue BID pulmicort therapy 3. Will need outpatient follow up for Full PFT 4. Agree with continued abx. Will likely need 10 days (total) of abx. Today is day 3. 5. Hopeful home in the next 24-48 hours. Subjective Date of service: 06/17/19 Interval history: no acute events. O2 not documented yet for today. Tolerated drop in steroids. Objective Vital Signs - 12hr 06/17/19 06/17/19 06/17/19 02:21 02:36 07:30 Temperature 98.5 F 98.5 F Pulse Rate 72 79 Pulse Rate [ 89 Bilateral Throughout] Respiratory 18 20 Rate Respiratory 18 Rate [Bilateral Throughout] Blood Pressure 150/68 152/75 O2 Sat by Pulse 95 98 Oximetry 06/17/19 09:01 Temperature Pulse Rate Pulse Rate [ Bilateral Throughout] Respiratory 20 Rate Respiratory Rate [Bilateral Throughout] Blood Pressure O2 Sat by Pulse Oximetry CBC and BMP: 06/17/19 05:31 06/17/19 05:31 ABG, PT/INR, D-dimer: ABG POC ABG pH 7.300 (7.35-7.45) L 06/14/19 22:09 POC ABG pCO2 56.5 (35-45) H 06/14/19 22:09 POC ABG pO2 107 (80-105) H 06/14/19 22:09 POC ABG HCO3 27.8 (22-26 mml/L) 06/14/19 22:09 POC ABG Total CO2 29 (23-27mmol/L) 06/14/19 22:09 POC ABG O2 Sat 97 06/14/19 22:09 PT/INR, D-dimer PT 13.7 Sec. (12.2-14.9) 06/14/19 21:17 INR 1.04 (0.87-1.13) 06/14/19 21:17 Abnormal lab findings: Abnormal Labs 06/14/19 06/14/19 06/14/19 21:11 21:17 22:09 WBC 14.1 H RDW 15.4 H [place] # 1.0 H Eos # 0.5 H Seg Neutrophils % 75.0 H Seg Neuts % (Manual) Lymphocytes % (Manual) Seg Neutrophils # 10.6 H Seg Neutrophils # Man Lymphocytes # (Manual) POC ABG pH 7.300 L POC ABG pCO2 56.5 H POC ABG pO2 107 H Carbon Dioxide BUN 20 H Glucose 304 H POC Glucose Calcium Magnesium 3.30 H Total Creatine Kinase 442 H NT-Pro-B Natriuret Pep Total Protein 8.4 H 06/15/19 06/15/19 06/15/19 04:39 04:39 07:12 WBC RDW [place] # Eos # Seg Neutrophils % Seg Neuts % (Manual) 99.0 H Lymphocytes % (Manual) 1.0 L Seg Neutrophils # 8.8 H Seg Neutrophils # Man 9.0 H Lymphocytes # (Manual) 0.1 L POC ABG pH POC ABG pCO2 POC ABG pO2 Carbon Dioxide 21 L BUN 20 H Glucose 177 H POC Glucose 174 H Calcium 8.2 L Magnesium Total Creatine Kinase NT-Pro-B Natriuret Pep Total Protein 06/15/19 06/15/19 06/15/19 11:34 16:32 19:40 WBC RDW [place] # Eos # Seg Neutrophils % Seg Neuts % (Manual) Lymphocytes % (Manual) Seg Neutrophils # Seg Neutrophils # Man Lymphocytes # (Manual) POC ABG pH POC ABG pCO2 POC ABG pO2 Carbon Dioxide BUN Glucose POC Glucose 284 H 194 H Calcium Magnesium Total Creatine Kinase NT-Pro-B Natriuret Pep 3004 H Total Protein 06/15/19 06/16/19 06/16/19 20:51 07:18 11:43 WBC RDW [place] # Eos # Seg Neutrophils % Seg Neuts % (Manual) Lymphocytes % (Manual) Seg Neutrophils # Seg Neutrophils # Man Lymphocytes # (Manual) POC ABG pH POC ABG pCO2 POC ABG pO2 Carbon Dioxide BUN Glucose POC Glucose 325 H 167 H 237 H Calcium Magnesium Total Creatine Kinase NT-Pro-B Natriuret Pep Total Protein 06/16/19 06/16/19 06/17/19 16:28 21:57 05:31 WBC 11.8 H RDW [place] # Eos # Seg Neutrophils % Seg Neuts % (Manual) Lymphocytes % (Manual) Seg Neutrophils # Seg Neutrophils # Man Lymphocytes # (Manual) POC ABG pH POC ABG pCO2 POC ABG pO2 Carbon Dioxide BUN Glucose POC Glucose 148 H 232 H Calcium Magnesium Total Creatine Kinase NT-Pro-B Natriuret Pep Total Protein 06/17/19 06/17/19 06/17/19 05:31 07:38 12:06 WBC RDW [place] # Eos # Seg Neutrophils % Seg Neuts % (Manual) Lymphocytes % (Manual) Seg Neutrophils # Seg Neutrophils # Man Lymphocytes # (Manual) POC ABG pH POC ABG pCO2 POC ABG pO2 Carbon Dioxide 21 L BUN 28 H Glucose 188 H POC Glucose 161 H 208 H Calcium Magnesium Total Creatine Kinase NT-Pro-B Natriuret Pep Total Protein
[2019-06-17 14:29] VITALS: BP 149/61
--- NOTE | 2019-06-17 15:08 | Discharge Summary ---
Providers - Providers Date of Admission: 06/15/19 14:10 Date of discharge: 06/17/19 Attending physician: YANELIS CARDENAS 06/15/19 00:33 Consult to Physician [CONS] Routine Comment: Consulting Provider: RANDALL RIVAS Physician Instructions: Reason For Exam: bronchitis Primary care physician: CHRISTINA TAY DO Hospitalization Condition: Stable Hospital course: Patient is a 68-year-old woman with history of hypertension, diabetes mellitus type 2, hyperlipidemia who presents to [facility] ED with SOB and cough x2 weeks. She saw her primary care physician last week Friday who gave her steroids, breathing treatments. Daughter stated the patient did fine for a few days. On Friday her symptoms started again, she had audible wheezing, nonproductive cough, shortness of breath. She took her back to the primary care physician today, she was given 2 breathing treatments and sent home. When she got home that she deteriorated, EMS was called. Patient was given several treatments in the emergency room. Patient desatured to 83% pulse Ox and was she was placed on BiPAP. Patient is being admitted for respiratory failure. * pCXR IMPRESSION: 1. Borderline cardiomegaly but no overt pulmonary edema or acute pulmonary disease. * CT chest without IMPRESSION: 1. 2 areas of focal parenchymal disease are present in the left lung, as outlined above. The most likely etiology is pneumonia. Radiographic follow-up is recommended to ensure areas resolve with medical therapy. Discharge Diagnoses: Acute hypoxic respiratory failure due to LLL pneumonia weaned BiPAP and continue to wean O2, breathing treatments Start high-dose steroids, levaquin, consult pulmonary Obtain CT chest, rule out pneumonia LLL pneumonia failed outpatient therapy treat with ABX Diabetes mellitus type 2 Check fingersticks initiate insulin sliding scale Continue outpatient medications Hypertension Continue outpatient medications DVT prophylaxis Disposition: continue inpatient care, trying to wean O2 68 y/o female with pneumonia, concern for COPD vs asthma exacerbation. 1. Continue steroids at 60q8, can change to 60 daily at discharge and tape over 2 week time span from there. 2. Continue BID pulmicort therapy 3. 4. Agree with continued abx. Will likely need 10 days (total) of abx. Today is day 3. 5. Hopeful home in the next 24-48 hours. Disposition: TO HOME OR SELFCARE Time spent for discharge: 36 minutes Core Measure Documentation - Palliative Care Palliative Care/ Comfort Measures: Not Applicable - Core Measures Any of the following diagnoses?: none - VTE Discharge Requirements Deep Vein Thrombosis/Pulmonary Embolism Present on Admission: No Has pt received <5 days of overlap therapy or INR<2.0: No Anticoagulant overlap therapy prescribed at discharge: No Contraindication No Overlap Therapy order at DC: Not Indicated Exam - Physical Exam Narrative exam: Gen: ill appearing, NAD, Awake, Alert, Orientated HEENT: NCAT, EOMI, PERRL, OP Clear Neck: supple, no adenopathy, no thyromegaly, no JVD CVS/Heart: RRR, normal S1S2, pulses present bilaterally Chest/Lungs: much improved Diminished BS bilateral, Symmetrical chest expansion, good air entry bilaterally GI/Abdomen: soft, NTND, good bowel sounds, no guarding or rebound /Bladder: no suprapubic tenderness, no CVA or paraspinal tenderness Extermity/Skin: no c/c/e, no obvious rash MSK: FROM x 4 Neuro: CN 2-12 grossly intact, no new focal deficits Psych: calm - Constitutional Vitals: Temp Pulse Resp BP Pulse Ox 98.9 F 95 H 18 149/61 95 06/17/19 14:07 06/17/19 14:54 06/17/19 14:54 06/17/19 14:07 06/17/19 14:07 Plan Activity: other (no strenous activity) Diet: low salt, diabetic Special Instructions: record daily BP diary, record blood sugar diary Additional Instructions: You Will need outpatient follow up for Full PFT (Pulmonary Function Test) Follow up with: CHRISTINA TAY DO [Primary Care Provider] - 7 Days ERAN COREA MD [Staff Physician] - 7 Days Prescriptions: predniSONE [Deltasone] 1 dose PO QDAY #58 tab levoFLOXacin [Levaquin] 750 mg PO QDAY #7 tablet ALBUTEROL Inhaler (OR & NICU) [ProAir HFA Inhaler] 2 puff IH QID PRN #8.5 gram PRN Reason: Shortness Of Breath Budesonide [Pulmicort Respules] 0.5 mg IH Q12HRT 30 Days #30 nebu Benzonatate [Tessalon Perles] 100 mg PO Q8HR PRN #15 capsule PRN Reason: Cough
== END 2019-06-17 17:00 | disposition home or self-care (01) | DRG 871 ==
LOC: ED 20:43 → 2B-ACE 22:38 → OBSVTOIN 06-15 14:10
PROVIDERS: ADMIT Internal Medicine; ATTEND Internal Medicine
PROC: 5A09357 Assistance with Respiratory Ventilation, Less than 24 Consecutive Hours, Continuous Positive Airway Pressure (ICD-10-PCS; 2019-06-14)
PROC: 4A033R1 Measurement of Arterial Saturation, Peripheral, Percutaneous Approach (ICD-10-PCS; principal; 2019-06-15)
PROC: 5A09357 Assistance with Respiratory Ventilation, Less than 24 Consecutive Hours, Continuous Positive Airway Pressure (ICD-10-PCS; 2019-06-15)
DX: A41.9 Sepsis, unspecified organism (principal); J18.9 Pneumonia, unspecified organism; J96.01 Acute respiratory failure with hypoxia; J45.901 Unspecified asthma with (acute) exacerbation; J20.9 Acute bronchitis, unspecified; I10 Essential (primary) hypertension; E11.9 Type 2 diabetes mellitus without complications; E78.5 Hyperlipidemia, unspecified; Z90.710 Acquired absence of both cervix and uterus; Z88.5 Allergy status to narcotic agent; Z82.49 Family history of ischemic heart disease and other diseases of the circulatory system
CPT/HCPCS: 36415; 71045; 71250; 80048; 80053; 82140; 82550; 82803; 82962; 83735; 83880; 84484; 85007; 85025; 85027; 85610; 85730; 87040; 93005; 93010; 94640; 94644; 94660; 94760; 96374; G0378; A9270-GY; J0171; J1650; J1815; J1956; J2250; J2405; J2930; J7030

== ENCOUNTER 2020-06-03 10:39 | Observation (INO) | payer MEDICARE ==
[2020-06-03] MEDS ORDERED: ONDANSETRON 4 MG/2 ML INJ IV ONE (12:05)
[2020-06-03] MEDS ORDERED: SODIUM CHLORIDE 0.9% 1000 ML 1,000 ML IV ONE (12:05)
--- NOTE | 2020-06-03 12:06 | Emergency Department Report ---
ED N/V/D HPI - General Chief complaint: Nausea/Vomiting/Diarrhea Stated complaint: HBP/NAUSEA/VOMIT Source: patient, family, old records reviewed Mode of arrival: Ambulatory Limitations: Language Barrier - History of Present Illness Initial comments: 69-year-old female the past medical history of hypertension, diabetes type II and hyperlipidemia presents to the hospital with complaints of nausea vomiting for last 3 days with generalized weakness. Patient also having some mild diarrhea. She has been able to eat and drink. She complains of a right temporal 4/10 headache only when exerting herself. She denies chest pain, abdominal pain, dysuria, fever, melena, hematochezia, or hematemesis. Previous edith surgery includes and hysterectomy. Son at the bedside assisting with translation is also a [employer] medic. States that patient's blood pressure has been running high. Patient missed a dose of her losartan 100 mg nightly 2 nights ago. She did take a dose last night and extra dose this morning. Apparently BP at home 192/87. Patient denies loss of sense of taste or smell, cough or cold symptoms. She has been noncompliant with her Lasix for 2 months due to itching. Denies history of CHF although she is on Lasix. She also complains of shortness of breath while sleeping but denies orthopnea or PND. PMD: Dr. Mary Morris - Related Data Home Medications Medication Instructions Recorded Confirmed Last Taken Losartan [Cozaar] 100 mg PO QDAY 06/15/19 06/03/20 06/02/20 Pravastatin Sodium 40 mg PO DAILY 06/15/19 06/03/20 Unknown Sitagliptin Phos/Metformin HCl 1 each PO BID 06/15/19 06/03/20 06/02/20 [Janumet 50-500 mg Tablet] Allergies Allergy/AdvReac Type Severity Reaction Status Date / Time codeine Allergy Unknown Verified 06/14/19 21:28 ED Review of Systems ROS: Stated complaint: HBP/NAUSEA/VOMIT Other details as noted in HPI Comment: All other systems reviewed and negative ED Past Medical Hx - Past Medical History Hx Hypertension: Yes Hx Diabetes: Yes Additional medical history: High Colesterol - Social History Smoking Status: Never Smoker Substance Use Type: None - Medications Home Medications: Home Medications Medication Instructions Recorded Confirmed Last Taken Type Losartan [Cozaar] 100 mg PO QDAY 06/15/19 06/03/20 06/02/20 History Pravastatin Sodium 40 mg PO DAILY 06/15/19 06/03/20 Unknown History Sitagliptin Phos/Metformin HCl 1 each PO BID 06/15/19 06/03/20 06/02/20 History [Janumet 50-500 mg Tablet] ED Physical Exam - General Limitations: Language Barrier - Other Other exam information: General: No acute distress Head: Atraumatic Eyes: normal appearance ENT: Moist mucous membranes Neck: Normal appearance, no midline tenderness Chest: Clear to auscultation bilaterally CV: Regular rate and rhythm Abdomen: Soft, normal bowel sounds, nontender, nondistended, no rebound or guarding Back: Normal inspection Extremity: Normal inspection, full range of motion Neuro: Alert O x 3, no facial asymmetry, speech clear, no gross motor sensory deficit Psych: Appropriate behavior Skin: No rash ED Course Vital Signs 06/03/20 06/03/20 06/03/20 10:52 10:53 12:15 Temperature 98.4 F Pulse Rate 81 81 69 Respiratory 20 20 25 H Rate Blood Pressure 205/86 205/86 Blood Pressure [Left] O2 Sat by Pulse 96 96 98 Oximetry 06/03/20 06/03/20 06/03/20 12:19 12:30 12:45 Temperature Pulse Rate 68 69 76 Respiratory 16 28 H 18 Rate Blood Pressure 185/76 183/76 Blood Pressure 195/74 [Left] O2 Sat by Pulse 98 98 97 Oximetry 06/03/20 06/03/20 06/03/20 13:00 13:16 13:30 Temperature Pulse Rate 79 75 72 Respiratory 28 H 26 H 20 Rate Blood Pressure 190/78 181/67 173/66 Blood Pressure [Left] O2 Sat by Pulse 98 94 Oximetry 06/03/20 06/03/20 06/03/20 13:45 14:00 14:15 Temperature Pulse Rate 70 74 72 Respiratory 22 20 22 Rate Blood Pressure 175/68 185/77 193/79 Blood Pressure [Left] O2 Sat by Pulse 92 96 96 Oximetry 06/03/20 06/03/20 06/03/20 14:18 14:21 14:30 Temperature Pulse Rate 73 73 74 Respiratory 26 H Rate Blood Pressure 193/79 193/79 156/51 Blood Pressure [Left] O2 Sat by Pulse Oximetry 06/03/20 15:27 Temperature Pulse Rate 68 Respiratory Rate Blood Pressure Blood Pressure [Left] O2 Sat by Pulse Oximetry - Consultations Consultation #1: 06/03/20 13:[address] Ziegler violin repairer on-call regarding patient's ACS/elevated troponin. Recommends Lovenox twice daily, metoprolol 50 mg twice daily as long as heart rate is greater than 60 and BP greater than 110. Also recommends to add amlodipine 5 mg for additional blood pressure control. Cardiology will consult ED Medical Decision Making - Lab Data Result diagrams: 06/03/20 11:37 06/03/20 11:37 Lab Results 06/03/20 06/03/20 06/03/20 Range/Units 11:37 11:37 11:37 WBC 6.6 (4.5-11.0) K/mm3 RBC 4.33 (3.65-5.03) M/mm3 Hgb 13.3 (10.1-14.3) gm/dl Hct 38.7 (30.3-42.9) % MCV 89 (79-97) fl MCH 31 (28-32) pg MCHC 34 (30-34) % RDW 14.3 (13.2-15.2) % Plt Count 201 (140-440) K/mm3 Lymph % (Auto) 22.3 (13.4-35.0) % [place] % (Auto) 11.0 H (0.0-7.3) % Eos % (Auto) 2.9 (0.0-4.3) % Baso % (Auto) 0.9 (0.0-1.8) % Lymph # (Auto) 1.5 (1.2-5.4) K/mm3 [place] # (Auto) 0.7 (0.0-0.8) K/mm3 Eos # (Auto) 0.2 (0.0-0.4) K/mm3 Baso # (Auto) 0.1 (0.0-0.1) K/mm3 Seg Neutrophils % 62.9 (40.0-70.0) % Seg Neutrophils # 4.2 (1.8-7.7) K/mm3 Sodium Cancelled 139 Potassium Cancelled 3.8 Chloride Cancelled 101.3 Carbon Dioxide Cancelled 29 Anion Gap Cancelled 13 BUN Cancelled 16 Creatinine Cancelled 0.6 Estimated GFR Cancelled > 60 BUN/Creatinine Ratio Cancelled 27 Glucose Cancelled 171 H POC Glucose (70-105) mg/dL Calcium Cancelled 9.5 Total Bilirubin 0.40 (0.1-1.2) mg/dL AST 16 (5-40) units/L ALT 16 (7-56) units/L Alkaline Phosphatase 86 (35-129) units/L Troponin T 0.111 H* (0.00-0.029) ng/mL Total Protein 7.8 (6.3-8.2) g/dL Albumin 4.1 (3.9-5) g/dL Albumin/Globulin Ratio 1.1 % Triglycerides 68 (2-149) mg/dL Cholesterol 142 (50-199) mg/dL LDL Cholesterol Direct 65 (50-130) mg/dL HDL Cholesterol 71 H (40-59) mg/dL Cholesterol/HDL Ratio 2.00 % Lipase 21 (13-60) units/L 12/05/20 Range/Units 12:08 WBC (4.5-11.0) K/mm3 RBC (3.65-5.03) M/mm3 Hgb (10.1-14.3) gm/dl Hct (30.3-42.9) % MCV (79-97) fl MCH (28-32) pg MCHC (30-34) % RDW (13.2-15.2) % Plt Count (140-440) K/mm3 Lymph % (Auto) (13.4-35.0) % [place] % (Auto) (0.0-7.3) % Eos % (Auto) (0.0-4.3) % Baso % (Auto) (0.0-1.8) % Lymph # (Auto) (1.2-5.4) K/mm3 [place] # (Auto) (0.0-0.8) K/mm3 Eos # (Auto) (0.0-0.4) K/mm3 Baso # (Auto) (0.0-0.1) K/mm3 Seg Neutrophils % (40.0-70.0) % Seg Neutrophils # (1.8-7.7) K/mm3 Sodium Potassium Chloride Carbon Dioxide Anion Gap BUN Creatinine Estimated GFR BUN/Creatinine Ratio Glucose POC Glucose 154 H (70-105) mg/dL Calcium Total Bilirubin (0.1-1.2) mg/dL AST (5-40) units/L ALT (7-56) units/L Alkaline Phosphatase (35-129) units/L Troponin T (0.00-0.029) ng/mL Total Protein (6.3-8.2) g/dL Albumin (3.9-5) g/dL Albumin/Globulin Ratio % Triglycerides (2-149) mg/dL Cholesterol (50-199) mg/dL LDL Cholesterol Direct (50-130) mg/dL HDL Cholesterol (40-59) mg/dL Cholesterol/HDL Ratio % Lipase (13-60) units/L - EKG Data -: EKG Interpreted by Me EKG shows normal: sinus rhythm, ST-T waves (LVH lateral T wave inversions) - EKG Data When compared to previous EKG there are: no significant change - Radiology Data Radiology results: report reviewed CHEST 2 VIEWS INDICATION / CLINICAL INFORMATION: Chest Pain. COMPARISON: 06/14/2019 FINDINGS: SUPPORT DEVICES: None. HEART / MEDIASTINUM: Cardiac silhouette remains moderately enlarged LUNGS / PLEURA: No significant pulmonary or pleural abnormality. No pneumothorax. ADDITIONAL FINDINGS: No significant additional findings. IMPRESSION: 1. Cardiomegaly without CHF - Medical Decision Making 69-year female presents to the hospital nausea, vomiting x3 days with generalized weakness or fatigue. Abdomen is soft and nontender. Chest x-ray with cardiomegaly without CHF. Patient's labs unremarkable with exception of elevated troponin in setting of normal renal function. EKG does not show any acute changes compared to previous. Patient provided aspirin given that her reported allergy to aspirin is very mild (allergy reported as nausea and vomiting and no history of bleeding peptic ulcer or anaphylaxis). Patient treated in the ED with Zofran as well with improvement in symptoms. Cardiology recommends metoprolol 50 mg twice daily, Lovenox daily, and amlodipine 5 mg daily. Initial dose was provided in ED. Patient will be admitted to the hospital for further work-up of ACS. Repeat troponin pending UA neg for infection Critical Care Time: No Critical care attestation.: If time is entered above; I have spent that time in minutes in the direct care of this critically ill patient, excluding procedure time. ED Disposition Clinical Impression: Nausea and vomiting, Fatigue, Elevated troponin, Uncontrolled hypertension Disposition: OP ADMIT IP TO THIS HOSP Is pt being admited?: Yes Does the pt Need Aspirin: Yes Condition: Stable Time of Disposition: 13:34 (dr Roth)
[2020-06-03 12:16] LABS: Basophils # (Auto) 0.1 K/mm3 (0.0-0.1); Basophils % (Auto) 0.9 % (0.0-1.8); Eosinophils # (Auto) 0.2 K/mm3 (0.0-0.4); Eosinophils % (Auto) 2.9 % (0.0-4.3); Hematocrit 38.7 % (30.3-42.9); Hemoglobin 13.3 gm/dl (10.1-14.3); Lymphocytes # (Auto) 1.5 K/mm3 (1.2-5.4); Lymphocytes % (Auto) 22.3 % (13.4-35.0); Mean Corpuscular HGB Conc 34 % (30-34); Mean Corpuscular Volume 89 fl (79-97); Monocytes # (Auto) 0.7 K/mm3 (0.0-0.8); Platelet Count 201 K/mm3 (140-440); Red Blood Count 4.33 M/mm3 (3.65-5.03); Red Cell Distribution Width 14.3 % (13.2-15.2)
[2020-06-03] MEDS: ASPIRIN 325 MG TAB PO ONE ×2 (12:22→13:14)
--- NOTE | 2020-06-03 12:23 | XRay Report ---
CHEST 2 VIEWS INDICATION / CLINICAL INFORMATION: Chest Pain. COMPARISON: 06/14/2019 FINDINGS: SUPPORT DEVICES: None. HEART / MEDIASTINUM: Cardiac silhouette remains moderately enlarged LUNGS / PLEURA: No significant pulmonary or pleural abnormality. No pneumothorax. ADDITIONAL FINDINGS: No significant additional findings. IMPRESSION: 1. Cardiomegaly without CHF Signer Name: Santana May MD Signed: 06/03/2020 12:19 PM Workstation Name: [id number]
[2020-06-03 12:44] LABS: Alanine Aminotransferase 16 units/L (7-56); Albumin 4.1 g/dL (3.9-5); Blood Urea Nitrogen 16 mg/dL (7-17); Calcium 9.5 mg/dL (8.4-10.2); Hemolysis Index 3
[2020-06-03 12:51] LABS: BUN/Creatinine Ratio 27
[2020-06-03] MEDS ORDERED: ASPIRIN 325 MG TAB ONE (13:06)
[2020-06-03] MEDS ORDERED: ENOXAPARIN 100 MG/1 ML INJ SUB-Q ONE (13:24)
[2020-06-03] MEDS ORDERED: METOPROLOL TARTRATE 50 MG TAB PO ONE (13:25)
[2020-06-03] MEDS ORDERED: amLODIPine 5 MG TAB PO ONE (13:25)
[2020-06-03 13:32] LABS: Bilirubin,Urine NEG (Negative); Blood,Urine NEG (Negative); Color,Urine Straw (Yellow); Mucus,Urine FEW /HPF; Protein,Urine <15 mg/dL mg/dL (Negative); Urobilinogen,Urine < 2.0 mg/dL (<2.0)
--- NOTE | 2020-06-03 17:50 | History and Physical Report ---
History of Present Illness Date of examination: 06/03/20 Date of admission: 06/03/20 14:06 Chief complaint: Vomiting and diarrhea for 3 days History of present illness: 69-year-old female with history of hypertension, type 2 diabetes and hyperlipidemia comes in for nausea vomiting and diarrhea of 3 days duration. Feels generalized weakness. Vomited about 4-5 times a day. No hematemesis no melena. No chest pain. Patient happens to have elevated troponin level while in the emergency room work-up. No shortness of breath. Patient stopped the Lasix because of side effects of itching. No abdominal pain. - Past Medical History --Hypertension: Yes --Diabetes: Yes --HLD --Surgical History None --Social History Smoking Status: Never Smoker Substance Use Type:None --Family history Htn - Medications Home Medications: Home Medications Medication Instructions Recorded Confirmed Last Taken Type Losartan [Cozaar] 100 mg PO QDAY 06/15/19 06/03/20 06/02/20 History Pravastatin Sodium 40 mg PO DAILY 06/15/19 06/03/20 Unknown History Sitagliptin Phos/Metformin HCl 1 each PO BID 06/15/19 06/03/20 06/02/20 History [Janumet 50-500 mg Tablet] Review of Systems ROS: Stated complaint: HBP/NAUSEA/VOMIT Other details as noted in HPI Comment: All other systems reviewed and negative Medications and Allergies Allergies Allergy/AdvReac Type Severity Reaction Status Date / Time codeine Allergy Unknown Verified 06/14/19 21:28 Home Medications Medication Instructions Recorded Confirmed Last Taken Type Losartan [Cozaar] 100 mg PO QDAY 06/15/19 06/03/20 06/02/20 History Pravastatin Sodium 40 mg PO DAILY 06/15/19 06/03/20 Unknown History Sitagliptin Phos/Metformin HCl 1 each PO BID 06/15/19 06/03/20 06/02/20 History [Janumet 50-500 mg Tablet] Exam - Constitutional Vitals: Temp Pulse Resp BP Pulse Ox 98.2 F 78 19 176/69 99 06/03/20 15:34 06/03/20 15:55 06/03/20 15:55 06/03/20 15:34 06/03/20 15:55 General appearance: Present: no acute distress, well-nourished - EENT Eyes: Present: PERRL ENT: hearing intact, clear oral mucosa - Neck Neck: Present: supple, normal ROM - Respiratory Respiratory effort: normal Respiratory: bilateral: CTA - Cardiovascular Heart rate: 72 Rhythm: regular Heart Sounds: Present: S1 & S2. Absent: rub, click - Extremities Extremities: no ischemia, pulses intact, pulses symmetrical, No edema Peripheral Pulses: within normal limits - Abdominal General gastrointestinal: Present: soft, non-tender, non-distended, normal bowel sounds Female genitourinary: Present: normal - Rectal Rectal Exam: deferred - Integumentary Integumentary: Present: clear, warm, dry - Musculoskeletal Musculoskeletal: gait normal, strength equal bilaterally - Psychiatric Psychiatric: appropriate mood/affect, intact judgment & insight - Neurologic Neurologic: CNII-XII intact, moves all extremities - Allied Health Allied health notes reviewed: nursing, case management HEART Score - HEART Score History: Highly suspicious Age: > 65 Risk factors: > 3 risk factors or hx of atherosclerotic disease Troponin: Troponin T 0.101 ng/mL (0.00-0.029) H* 06/03/20 16:31 Troponin: 1-3x normal limit - Critical Actions Critical Actions: 4-6 pts:12-16.6% risk of adverse cardiac event. Should be admitted Results - Labs CBC & Chem 7: 06/03/20 11:37 06/03/20 11:37 Labs: Laboratory Last Values WBC 6.6 K/mm3 (4.5-11.0) 06/03/20 11:37 RBC 4.33 M/mm3 (3.65-5.03) 06/03/20 11:37 Hgb 13.3 gm/dl (10.1-14.3) 06/03/20 11:37 Hct 38.7 % (30.3-42.9) 06/03/20 11:37 MCV 89 fl (79-97) 06/03/20 11:37 MCH 31 pg (28-32) 06/03/20 11:37 MCHC 34 % (30-34) 06/03/20 11:37 RDW 14.3 % (13.2-15.2) 06/03/20 11:37 Plt Count 201 K/mm3 (140-440) 06/03/20 11:37 Lymph % (Auto) 22.3 % (13.4-35.0) 06/03/20 11:37 [place] % (Auto) 11.0 % (0.0-7.3) H 06/03/20 11:37 Eos % (Auto) 2.9 % (0.0-4.3) 06/03/20 11:37 Baso % (Auto) 0.9 % (0.0-1.8) 06/03/20 11:37 Lymph # (Auto) 1.5 K/mm3 (1.2-5.4) 06/03/20 11:37 [place] # (Auto) 0.7 K/mm3 (0.0-0.8) 06/03/20 11:37 Eos # (Auto) 0.2 K/mm3 (0.0-0.4) 06/03/20 11:37 Baso # (Auto) 0.1 K/mm3 (0.0-0.1) 06/03/20 11:37 Seg Neutrophils % 62.9 % (40.0-70.0) 06/03/20 11:37 Seg Neutrophils # 4.2 K/mm3 (1.8-7.7) 06/03/20 11:37 Sodium 139 mmol/L (137-145) 06/03/20 11:37 Sodium Cancelled 06/03/20 11:37 Potassium 3.8 mmol/L (3.6-5.0) 06/03/20 11:37 Potassium Cancelled 06/03/20 11:37 Chloride 101.3 mmol/L (98-107) 06/03/20 11:37 Chloride Cancelled 06/03/20 11:37 Carbon Dioxide 29 mmol/L (22-30) 06/03/20 11:37 Carbon Dioxide Cancelled 06/03/20 11:37 Anion Gap 13 mmol/L 06/03/20 11:37 Anion Gap Cancelled 06/03/20 11:37 BUN 16 mg/dL (7-17) 06/03/20 11:37 BUN Cancelled 06/03/20 11:37 Creatinine 0.6 mg/dL (0.6-1.2) 06/03/20 11:37 Creatinine Cancelled 06/03/20 11:37 Estimated GFR > 60 ml/min 06/03/20 11:37 Estimated GFR Cancelled 06/03/20 11:37 BUN/Creatinine Ratio 27 % 06/03/20 11:37 BUN/Creatinine Ratio Cancelled 06/03/20 11:37 Glucose 171 mg/dL (65-100) H 06/03/20 11:37 Glucose Cancelled 06/03/20 11:37 POC Glucose 154 mg/dL (70-105) H 06/03/20 12:08 Calcium 9.5 mg/dL (8.4-10.2) 06/03/20 11:37 Calcium Cancelled 06/03/20 11:37 Total Bilirubin 0.40 mg/dL (0.1-1.2) 06/03/20 11:37 AST 16 units/L (5-40) 06/03/20 11:37 ALT 16 units/L (7-56) 06/03/20 11:37 Alkaline Phosphatase 86 units/L (35-129) 06/03/20 11:37 Troponin T 0.101 ng/mL (0.00-0.029) H* 06/03/20 16:31 Total Protein 7.8 g/dL (6.3-8.2) 06/03/20 11:37 Albumin 4.1 g/dL (3.9-5) 06/03/20 11:37 Albumin/Globulin Ratio 1.1 % 06/03/20 11:37 Triglycerides 68 mg/dL (2-149) 06/03/20 11:37 Cholesterol 142 mg/dL (50-199) 06/03/20 11:37 LDL Cholesterol Direct 65 mg/dL (50-130) 06/03/20 11:37 HDL Cholesterol 71 mg/dL (40-59) H 06/03/20 11:37 Cholesterol/HDL Ratio 2.00 % 06/03/20 11:37 Lipase 21 units/L (13-60) 06/03/20 11:37 Urine Color Straw (Yellow) 06/03/20 13:15 Urine Turbidity Clear (Clear) 06/03/20 13:15 Urine pH 8.0 (5.0-7.0) H 06/03/20 13:15 Ur Specific [place] 1.008 (1.003-1.030) 06/03/20 13:15 Urine Protein <15 mg/dl mg/dL (Negative) 06/03/20 13:15 Urine Glucose (UA) Neg mg/dL (Negative) 06/03/20 13:15 Urine Ketones Neg mg/dL (Negative) 06/03/20 13:15 Urine Blood Neg (Negative) 06/03/20 13:15 Urine Nitrite Neg (Negative) 06/03/20 13:15 Urine Bilirubin Neg (Negative) 06/03/20 13:15 Urine Urobilinogen < 2.0 mg/dL (<2.0) 06/03/20 13:15 Ur Leukocyte Esterase Neg (Negative) 06/03/20 13:15 Urine WBC (Auto) 1.0 /HPF (0.0-6.0) 06/03/20 13:15 Urine RBC (Auto) 2.0 /HPF (0.0-6.0) 06/03/20 13:15 U Epithel Cells (Auto) 1.0 /HPF (0-13.0) 06/03/20 13:15 Urine Mucus Few /HPF 06/03/20 13:15 Short CBC 06/03/20 Range/Units 11:37 WBC 6.6 (4.5-11.0) K/mm3 Hgb 13.3 (10.1-14.3) gm/dl Hct 38.7 (30.3-42.9) % Plt Count 201 (140-440) K/mm3 BMP 06/03/20 06/03/20 11:37 11:37 Sodium Cancelled 139 Potassium Cancelled 3.8 Chloride Cancelled 101.3 Carbon Dioxide Cancelled 29 BUN Cancelled 16 Creatinine Cancelled 0.6 Glucose Cancelled 171 H Calcium Cancelled 9.5 Cardiac Enzymes 06/03/20 06/03/20 06/03/20 Range/Units 11:37 14:29 16:31 Troponin T 0.111 H* 0.097 H 0.101 H* (0.00-0.029) ng/mL Liver Function 06/03/20 Range/Units 11:37 Total Bilirubin 0.40 (0.1-1.2) mg/dL AST 16 (5-40) units/L ALT 16 (7-56) units/L Alkaline Phosphatase 86 (35-129) units/L Albumin 4.1 (3.9-5) g/dL Urine 06/03/20 Range/Units 13:15 Urine Color Straw (Yellow) Urine pH 8.0 H (5.0-7.0) Ur Specific [place] 1.008 (1.003-1.030) Urine Protein <15 mg/dl (Negative) mg/dL Urine Glucose (UA) Neg (Negative) mg/dL - Imaging and Cardiology EKG: report reviewed (Sinus rhythm heart rate of 72/min LVH with secondary repolarization abnormalities) Chest x-ray: report reviewed (Cardiomegaly without CHF) Suarez/IV: Voiding Method Toilet IV Catheter Type [Right INT / Saline Lock Forearm] Assessment and Plan Advance Directives: Yes (Full code) VTE prophylaxis?: Chemical Plan of care discussed with patient/family: Yes - Patient Problems (1) NSTEMI (non-ST elevated myocardial infarction) Current Visit: Yes Status: Acute Plan to address problem: Consistently elevated troponin We will treat as non-STEMI Patient started on IV heparin [facility]iology [facility] (2) Acute gastritis Current Visit: Yes Status: Acute Qualifiers: Gastritis type: unspecified gastritis Plan to address problem: IV Protonix, IV fluids, IV Zofran and IV Reglan (3) Hypertension Current Visit: Yes Status: Chronic Qualifiers: Hypertension type: essential hypertension Qualified Code(s): I10 - Essential (primary) hypertension Plan to address problem: Continue losartan and adjust medications as necessary (4) T2DM (type 2 diabetes mellitus) Current Visit: Yes Status: Chronic Qualifiers: Diabetes mellitus technician terminal and repeater insulin use: without technician terminal and repeater use Plan to address problem: Continue oral hypoglycemics and coverage Check hemoglobin A1c (5) Hyperlipidemia Current Visit: Yes Status: Chronic Qualifiers: Hyperlipidemia type: mixed hyperlipidemia Qualified Code(s): E78.2 - Mixed hyperlipidemia Plan to address problem: Continue statins (6) DVT prophylaxis Current Visit: Yes Status: Acute Plan to address problem: Patient on heparin IV and GI prophylaxis
[2020-06-03] MEDS ORDERED: ONDANSETRON 4 MG/2 ML INJ IV PRN (21:15)
[2020-06-03] MEDS ORDERED: PRAVASTATIN SODIUM 40 MG PO SCH (21:15)
[2020-06-03] MEDS ORDERED: ACETAMINOPHEN 325 MG TAB PO PRN (21:15)
[2020-06-03] MEDS ORDERED: HYDROmorphone 1 MG/1 ML INJ IV PRN (21:16)
[2020-06-03] MEDS ORDERED: HEPARIN 10,000 UNITS/10 ML VIAL IV ONE (21:20)
[2020-06-03 22:00] LABS: Hematocrit 37.6 % (30.3-42.9); Hemoglobin 12.7 gm/dl (10.1-14.3)
[2020-06-03] MEDS ORDERED: METFORMIN HCL PO SCH (22:00)
[2020-06-03] MEDS ORDERED: FAMOTIDINE 20 MG TAB PO SCH (22:00)
[2020-06-03] MEDS ORDERED: SITAGLIPTIN PHOS PO SCH (22:00)
[2020-06-03 22:11] LABS: INR 0.95 (0.87-1.13)
[2020-06-03 22:13] LABS: Partial Thromboplastin Time 41.7 Sec. (24.2-36.6)
[2020-06-03] MEDS: PANTOPRAZOLE 40 MG INJ IV SCH (23:01)
[2020-06-03] MEDS: INSULIN LISPRO 100 UNIT/ML VIAL 3 mL SUB-Q SCH (23:02)
[2020-06-03] MEDS: PRAVASTATIN 40 MG TAB PO SCH (23:02)
[2020-06-03] MEDS: LOSARTAN 50 MG TAB PO SCH (23:02)
[2020-06-03] MEDS: HEPARIN/ 0.45% NACL DRIP 25,000 UNIT/500 ML BAG IV SCH (23:05)
[2020-06-03] MEDS: SODIUM CHLORIDE 0.9% 1000 ML 1,000 ML IV SCH (23:06)
[2020-06-04] MEDS ORDERED: metFORMIN 500 MG TAB PO SCH (08:00)
[2020-06-04 08:07] LABS: Basophils # (Auto) 0.1 K/mm3 (0.0-0.1); Basophils % (Auto) 1.2 % (0.0-1.8); Eosinophils # (Auto) 0.2 K/mm3 (0.0-0.4); Eosinophils % (Auto) 3.1 % (0.0-4.3); Hematocrit 35.5 % (30.3-42.9); Hemoglobin 11.8 gm/dl (10.1-14.3); Lymphocytes # (Auto) 2.5 K/mm3 (1.2-5.4); Lymphocytes % (Auto) 31.6 % (13.4-35.0); Mean Corpuscular HGB Conc 33 % (30-34); Mean Corpuscular Volume 91 fl (79-97); Monocytes # (Auto) 0.9 K/mm3 (0.0-0.8); Monocytes % (Auto) 11.6 % (0.0-7.3); Platelet Count 180 K/mm3 (140-440); Red Blood Count 3.92 M/mm3 (3.65-5.03); Red Cell Distribution Width 14.6 % (13.2-15.2)
[2020-06-04 08:28] LABS: Alanine Aminotransferase 16 units/L (7-56); Albumin 3.5 g/dL (3.9-5); Blood Urea Nitrogen 13 mg/dL (7-17); Calcium 8.6 mg/dL (8.4-10.2); Hemolysis Index 22
[2020-06-04 08:33] LABS: BUN/Creatinine Ratio 19
--- NOTE | 2020-06-04 09:33 | Progress Note ---
Assessment and Plan - Patient Problems (1) Acute gastritis Current Visit: Yes Status: Acute Qualifiers: Gastritis type: unspecified gastritis Plan to address problem: Acute gastritis resolving with addition of proton pump inhibitor. Currently pain-free. (2) DVT prophylaxis Current Visit: Yes Status: Acute (3) Elevated troponin Current Visit: Yes Status: Acute Plan to address problem: Patient with elevated troponin of 1. Given patient's multiple risk factors including hypertension diabetes cardiology consult has been obtained for further evaluation. Patient initially was treated with heparin drip has since been discontinued. (4) NSTEMI (non-ST elevated myocardial infarction) Current Visit: Yes Status: Acute Plan to address problem: Await cardiology follow-up for further recommendations. No acute EKG changes. No chest pain only nausea and vomiting which is since resolved. (5) Nausea and vomiting Current Visit: Yes Status: Resolved (6) Uncontrolled hypertension Current Visit: Yes Status: Acute (7) Hypertension Current Visit: Yes Status: Chronic Qualifiers: Hypertension type: essential hypertension Qualified Code(s): I10 - Essential (primary) hypertension Plan to address problem: We will restart losartan and initiate metoprolol 50 mg twice daily. Patient has much better control today. (8) T2DM (type 2 diabetes mellitus) Current Visit: Yes Status: Chronic Qualifiers: Diabetes mellitus chcf insulin use: without chcf use Plan to address problem: Initiate Tradjenta and sliding scale insulin coverage. Patient has fair control at this time. Anticipate discharge after cardiac work-up complete. Subjective Date of service: 06/04/20 Principal diagnosis: Nausea and vomiting, elevated troponin Interval history: Patient 69-year-old female with a history of hypertension diabetes hyperlipidemia presented with 3 days of nausea vomiting approximately 4-5 times per day. Upon initial work-up in ED patient was found to have elevated troponin at 0.1. Patient also had recently discontinued Metformin secondary to what ap peared to be gastritis. No acute EKG changes only cardiomegaly. Patient at present abdominal pain has resolved. No nausea no vomiting. Patient states he feels much better. Patient scheduled for follow-up cardiology evaluation today for elevated troponin. Anticipate discharge pending cardiac work-up. Objective - Constitutional Vitals: Vital Signs - 12hr 06/03/20 06/03/20 06/04/20 22:00 23:02 00:30 Temperature 98.0 F Pulse Rate 64 69 73 Respiratory 18 Rate Blood Pressure 160/64 141/58 O2 Sat by Pulse 94 Oximetry 06/04/20 06/04/20 05:43 08:33 Temperature 98.0 F 98.0 F Pulse Rate 64 75 Respiratory 18 18 Rate Blood Pressure 153/56 155/50 O2 Sat by Pulse 96 95 Oximetry General appearance: Present: no acute distress - EENT Eyes: PERRL, EOM intact ENT: hearing intact, clear oral mucosa Ears: bilateral: normal - Neck Neck: supple, normal ROM - Respiratory Respiratory effort: normal Respiratory: bilateral: CTA - Breasts Breasts: normal - Cardiovascular Rhythm: regular Heart Sounds: Present: S1 & S2. Absent: gallop, rub Extremities: pulses intact, No edema, normal color, Full ROM - Gastrointestinal General gastrointestinal: Present: soft, non-tender, non-distended, normal bowel sounds - Genitourinary Female genitourinary: normal - Integumentary Integumentary: clear, warm, dry - Musculoskeletal Musculoskeletal: 1, strength equal bilaterally - Neurologic Neurologic: moves all extremities - Psychiatric Psychiatric: memory intact, appropriate mood/affect, intact judgment & insight - Labs CBC & Chem 7: 06/04/20 07:02 06/04/20 07:02 Labs: Abnormal lab results 06/03/20 06/03/20 06/03/20 Range/Units 11:37 11:37 11:37 [place] % (Auto) 11.0 H (0.0-7.3) % [place] # (Auto) (0.0-0.8) K/mm3 APTT (24.2-36.6) Sec. Heparin Anti-Xa Level (0.3-0.7) U.I./ml Glucose 171 H (65-100) mg/dL POC Glucose (70-105) mg/dL Hemoglobin A1c (4-6) % Troponin T 0.111 H* (0.00-0.029) ng/mL Albumin (3.9-5) g/dL HDL Cholesterol 71 H (40-59) mg/dL Urine pH (5.0-7.0) 06/03/20 06/03/20 06/03/20 Range/Units 12:08 13:15 14:29 [place] % (Auto) (0.0-7.3) % [place] # (Auto) (0.0-0.8) K/mm3 APTT (24.2-36.6) Sec. Heparin Anti-Xa Level (0.3-0.7) U.I./ml Glucose (65-100) mg/dL POC Glucose 154 H (70-105) mg/dL Hemoglobin A1c (4-6) % Troponin T 0.097 H (0.00-0.029) ng/mL Albumin (3.9-5) g/dL HDL Cholesterol (40-59) mg/dL Urine pH 8.0 H (5.0-7.0) 06/03/20 06/03/20 06/03/20 Range/Units 16:31 21:34 21:34 [place] % (Auto) (0.0-7.3) % [place] # (Auto) (0.0-0.8) K/mm3 APTT 41.7 H (24.2-36.6) Sec. Heparin Anti-Xa Level (0.3-0.7) U.I./ml Glucose (65-100) mg/dL POC Glucose (70-105) mg/dL Hemoglobin A1c 8.7 H (4-6) % Troponin T 0.101 H* (0.00-0.029) ng/mL Albumin (3.9-5) g/dL HDL Cholesterol (40-59) mg/dL Urine pH (5.0-7.0) 06/03/20 06/04/20 06/04/20 Range/Units 23:00 07:02 07:02 [place] % (Auto) 11.6 H (0.0-7.3) % [place] # (Auto) 0.9 H (0.0-0.8) K/mm3 APTT (24.2-36.6) Sec. Heparin Anti-Xa Level (0.3-0.7) U.I./ml Glucose 118 H (65-100) mg/dL POC Glucose 167 H (70-105) mg/dL Hemoglobin A1c (4-6) % Troponin T (0.00-0.029) ng/mL Albumin 3.5 L (3.9-5) g/dL HDL Cholesterol (40-59) mg/dL Urine pH (5.0-7.0) 06/04/20 06/04/20 06/04/20 Range/Units 07:02 07:38 07:57 [place] % (Auto) (0.0-7.3) % [place] # (Auto) (0.0-0.8) K/mm3 APTT (24.2-36.6) Sec. Heparin Anti-Xa Level 1.11 H (0.3-0.7) U.I./ml Glucose (65-100) mg/dL POC Glucose 122 H (70-105) mg/dL Hemoglobin A1c (4-6) % Troponin T 0.100 H (0.00-0.029) ng/mL Albumin (3.9-5) g/dL HDL Cholesterol (40-59) mg/dL Urine pH (5.0-7.0) HEART Score - HEART Score Age: > 65 Risk factors: > 3 risk factors or hx of atherosclerotic disease Troponin: Troponin T 0.100 ng/mL (0.00-0.029) H 06/04/20 07:57 Troponin: 1-3x normal limit - Critical Actions Critical Actions: 4-6 pts:12-16.6% risk of adverse cardiac event. Should be admitted
[2020-06-04] MEDS: INSULIN LISPRO 100 UNIT/ML VIAL 3 mL SUB-Q SCH ×4 (09:57→21:53)
[2020-06-04] MEDS: LOSARTAN 50 MG TAB PO SCH (09:59)
[2020-06-04] MEDS: LINAGLIPTIN 5 MG TAB PO SCH (09:59)
[2020-06-04] MEDS: PANTOPRAZOLE 40 MG INJ IV SCH ×2 (09:59→21:54)
[2020-06-04] MEDS: METOPROLOL TARTRATE 50 MG TAB PO SCH ×2 (09:59→21:53)
[2020-06-04] MEDS: SODIUM CHLORIDE 0.9% 1000 ML 1,000 ML IV SCH (12:08)
--- NOTE | 2020-06-04 16:59 | Consultation ---
History of Present Illness Consult date: 06/04/20 Requesting physician: ALEKS DOMINGUEZ Consult reason: elevated troponin History of present illness: The patient requested me to discuss her history with her son who could be more informative. Unfortunately, I tried both phone numbers provided by the patient multiple times without any response. She presented to the emergency department with a three day history of nausea and vomiting as well as mild diarrhea. She also experienced some headache. Her BP was severely elevated upon presentation. She denies chest pain or dyspnea. No palpitations or dizziness. Troponin level is elevated. Past History Past Medical History: hypertension, hyperlipidemia Past Surgical History: hysterectomy Social history: denies: smoking, alcohol abuse Family history: other (details are unknown.) Medications and Allergies Allergies Allergy/AdvReac Type Severity Reaction Status Date / Time codeine Allergy Unknown Verified 06/14/19 21:28 Home Medications Medication Instructions Recorded Confirmed Last Taken Type Losartan [Cozaar] 100 mg PO QDAY 06/15/19 06/03/20 06/02/20 History Pravastatin Sodium 40 mg PO DAILY 06/15/19 06/03/20 Unknown History Sitagliptin Phos/Metformin HCl 1 each PO BID 06/15/19 06/03/20 06/02/20 History [Janumet 50-500 mg Tablet] Active Meds: Active Medications Acetaminophen (Tylenol) 650 mg PO Q4H PRN PRN Reason: Pain MILD(1-3)/Fever >100.5/PAZ Last Admin: 06/04/20 10:05 Dose: 650 mg Documented by: Hydromorphone HCl (Dilaudid) 0.5 mg IV Q3H PRN PRN Reason: Pain , Severe (7-10) Sodium Chloride (Nacl 0.9% 1000 Ml) 1,000 mls @ 75 mls/hr IV DIRECT NADER Last Admin: 06/04/20 12:08 Dose: 75 mls/hr Documented by: Heparin Sodium/Sodium Chloride (Heparin/ 0.45% Nacl-25,000 Unit/500 Ml) 25,000 unit in 500 mls @ 20 mls/hr IV TITRATE NADER; Protocol Last Titration: 06/04/20 12:15 Dose: 850 units/hr, 17 mls/hr Documented by: Insulin Human Lispro (Humalog) 0 unit SUB-Q ACHS NADER; Protocol Last Admin: 06/04/20 16:37 Dose: 2 unit Documented by: Linagliptin (Tradjenta) 5 mg PO QDAY [facility] Last Admin: 06/04/20 09:59 Dose: 5 mg Documented by: Losartan Potassium (Cozaar) 100 mg PO QDAY [facility] Last Admin: 06/04/20 09:59 Dose: 100 mg Documented by: Metoprolol Tartrate (Metoprolol) 50 mg PO BID [facility] Last Admin: 06/04/20 09:59 Dose: 50 mg Documented by: Ondansetron HCl (Zofran) 4 mg IV Q8H PRN PRN Reason: Nausea And Vomiting Oxycodone/Acetaminophen (Percocet 5/325) 1 tab PO Q6H PRN PRN Reason: Pain, Moderate (4-6) Pantoprazole Sodium (Protonix) 40 mg IV BID [facility] Last Admin: 06/04/20 09:59 Dose: 40 mg Documented by: Pravastatin Sodium (Pravachol) 40 mg PO QHS [facility] Last Admin: 06/03/20 23:02 Dose: 40 mg Documented by: Sodium Chloride (Sodium Chloride Flush Syringe 10 Ml) 10 ml IV BID [facility] Last Admin: 06/04/20 09:59 Dose: 10 ml Documented by: Sodium Chloride (Sodium Chloride Flush Syringe 10 Ml) 10 ml IV PRN PRN PRN Reason: LINE FLUSH Review of Systems Constitutional: weakness, no fever, no chills Ears, nose, mouth and throat: no ear pain, no ear discharge, no sore throat Cardiovascular: no chest pain, no palpitations, no lightheadedness, no shortness of breath Respiratory: no cough, no hemoptysis Gastrointestinal: nausea, vomiting, diarrhea, no constipation Genitourinary Female: no dysuria, no urinary frequency Rectal: no pain, no bleeding Musculoskeletal: no neck stiffness, no myalgias Integumentary: no rash Neurological: headaches, no weakness Endocrine: no cold intolerance, no heat intolerance Hematologic/Lymphatic: no easy bruising, no easy bleeding Allergic/Immunologic: no urticaria, no wheezing Physical Examination Vital Signs Pulse Resp BP Pulse Ox 81 20 205/86 96 06/03/20 10:52 06/03/20 10:52 06/03/20 10:52 06/03/20 10:52 General appearance: no acute distress HEENT: Positive: EOMI, Normocephaly, Mucus Membranes Moist Neck: Positive: neck supple, trachea midline Cardiac: Positive: Reg Rate and Rhythm, S1/S2 Lungs: Positive: clear to auscultation Neuro: Positive: Grossly Intact Abdomen: Positive: Soft, Active Bowel Sounds. Negative: Tender Skin: Positive: Clear. Negative: Rash Musculoskeletal: Normal Range of Motion Extremities: Present: normal. Absent: edema Results 06/04/20 07:02 06/04/20 07:02 Cardiac Enzymes 06/04/20 Range/Units 07:02 AST 17 (5-40) units/L Coagulation 06/03/20 Range/Units 21:34 PT 12.6 (12.2-14.9) Sec. INR 0.95 (0.87-1.13) APTT 41.7 H (24.2-36.6) Sec. CBC 06/03/20 06/04/20 Range/Units 21:34 07:02 WBC 7.9 (4.5-11.0) K/mm3 RBC 3.92 (3.65-5.03) M/mm3 Hgb 12.7 11.8 (10.1-14.3) gm/dl Hct 37.6 35.5 (30.3-42.9) % Plt Count 187 180 (140-440) K/mm3 Lymph # (Auto) 2.5 (1.2-5.4) K/mm3 [place] # (Auto) 0.9 H (0.0-0.8) K/mm3 Eos # (Auto) 0.2 (0.0-0.4) K/mm3 Baso # (Auto) 0.1 (0.0-0.1) K/mm3 Comprehensive Metabolic Panel 06/04/20 Range/Units 07:02 Sodium 141 (137-145) mmol/L Potassium 3.8 (3.6-5.0) mmol/L Chloride 106.1 (98-107) mmol/L Carbon Dioxide 28 (22-30) mmol/L BUN 13 (7-17) mg/dL Creatinine 0.7 (0.6-1.2) mg/dL Glucose 118 H (65-100) mg/dL Calcium 8.6 (8.4-10.2) mg/dL AST 17 (5-40) units/L ALT 16 (7-56) units/L Alkaline Phosphatase 66 (35-129) units/L Total Protein 6.9 (6.3-8.2) g/dL Albumin 3.5 L (3.9-5) g/dL - Imaging and Cardiology EKG: image reviewed EKG interpretations - Telemetry EKG Rhythm: Sinus Rhythm - EKG Sinus rhythms and dysrhythmias: sinus rhythm Repolarization changes or abnormalities: repolarization abn secondary to ventricular hypertrophy Assessment and Plan Will optimize antihypertensive regimen. Her pattern of elevated troponin is somewhat flat. In the absence of anginal symptoms, she will be scheduled for Lexiscan stress MPI in a.m. - Patient Problems (1) Elevated troponin Current Visit: Yes Status: Acute (2) Hypertensive urgency Current Visit: Yes Status: Acute (3) T2DM (type 2 diabetes mellitus) Current Visit: Yes Status: Chronic Qualifiers: Diabetes mellitus care home insulin use: without care home use
[2020-06-04] MEDS: PRAVASTATIN 40 MG TAB PO SCH (21:52)
[2020-06-05] MEDS: HEPARIN/ 0.45% NACL DRIP 25,000 UNIT/500 ML BAG IV SCH (02:10)
[2020-06-05] MEDS: oxyCODONE /ACETAMINOPHEN 5-325MG TAB PO PRN (02:11)
[2020-06-05 05:26] LABS: Hematocrit 35.1 % (30.3-42.9); Hemoglobin 11.6 gm/dl (10.1-14.3)
[2020-06-05] MEDS ORDERED: REGADENOSON 0.4 MG/5 ML INJ IV ONE ×2 (08:24→09:34)
[2020-06-05] MEDS: INSULIN LISPRO 100 UNIT/ML VIAL 3 mL SUB-Q SCH ×4 (08:30→23:13)
--- NOTE | 2020-06-05 10:52 | Progress Note ---
Assessment and Plan tte reviewed- EF 45-50%. S/p lexiscan MPI stress test this AM which was negative for ischemia. tele reviewed - pt currently in NSR HR 60s, SB HR low 45bpm noted overnight with 2.2 and 3.1 sec sinus pauses noted while pt was asleep. Recommend OP sleep study. Optimize anti-hypertensive regimen - initiate amlodipine, cont BB for now and ob serve for another day on telemetry. The patient has been seen in conjunction with Dr. Ritchie who agrees with the assessment and plan of care. - Patient Problems (1) NSTEMI (non-ST elevated myocardial infarction) Current Visit: Yes Status: Acute Plan to address problem: suspect type II; no occurrence of chest pain (2) Hypertensive urgency Current Visit: Yes Status: Acute (3) Acute gastritis Current Visit: Yes Status: Acute Qualifiers: Gastritis type: unspecified gastritis (4) Nausea and vomiting Current Visit: Yes Status: Resolved (5) T2DM (type 2 diabetes mellitus) Current Visit: Yes Status: Chronic Qualifiers: Diabetes mellitus machine long goods helper insulin use: without machine long goods helper use (6) Hyperlipidemia Current Visit: Yes Status: Chronic Qualifiers: Hyperlipidemia type: mixed hyperlipidemia Qualified Code(s): E78.2 - Mixed hyperlipidemia Subjective Date of service: 06/05/20 Principal diagnosis: Nausea and vomiting, elevated troponin Interval history: pt for stress test, no current cardiac complaints. tele reviewed - pt currently in NSR HR 60s, SB HR low 45bpm noted overnight with 2.2 and 3.1 sec sinus pauses noted while pt was asleep. Objective Last Vital Signs Temp 97.9 F 06/05/20 08:10 Pulse 71 06/05/20 08:10 Resp 18 06/05/20 08:10 BP 200/82 06/05/20 08:10 Pulse Ox 97 06/05/20 08:10 - Physical Examination General: No Apparent Distress HEENT: Positive: EOMI, Normocephaly, Mucus Membranes Moist Neck: Positive: neck supple, trachea midline Cardiac: Positive: Reg Rate and Rhythm, S1/S2 Lungs: Positive: Decreased Breath Sounds Neuro: Positive: Grossly Intact Abdomen: Positive: Soft, Active Bowel Sounds. Negative: Tender Skin: Positive: Clear. Negative: Rash Musculoskeletal: Normal Range of Motion Extremities: Present: normal. Absent: edema - Labs and Meds CBC 06/05/20 Range/Units 04:44 Hgb 11.6 (10.1-14.3) gm/dl Hct 35.1 (30.3-42.9) % Plt Count 164 (140-440) K/mm3 - Imaging and Cardiology EKG: image reviewed - Telemetry EKG Rhythm: Sinus Rhythm - EKG Sinus rhythms and dysrhythmias: sinus rhythm Repolarization changes or abnormalities: repolarization abn secondary to ventricular hypertrophy
[2020-06-05] MEDS: LOSARTAN 50 MG TAB PO SCH (13:26)
[2020-06-05] MEDS: LINAGLIPTIN 5 MG TAB PO SCH (13:27)
[2020-06-05] MEDS: METOPROLOL TARTRATE 50 MG TAB PO SCH (13:27)
[2020-06-05] MEDS: amLODIPine 10 MG TAB PO SCH (13:27)
[2020-06-05] MEDS: PANTOPRAZOLE 40 MG INJ IV SCH ×2 (13:27→22:16)
[2020-06-05] MEDS ORDERED: METOPROLOL TARTRATE 50 MG TAB PO SCH (14:46)
--- NOTE | 2020-06-05 14:49 | Discharge Summary ---
Providers - Providers Date of Admission: 06/03/20 14:06 Date of discharge: 06/06/20 Attending physician: ANALI GILBERT 06/03/20 13:34 Consult to Physician [CONS] Urgent Comment: Consulting Provider: CAMERON HENRY Physician Instructions: Reason For Exam: elevated trop Primary care physician: CHRISTINA TAY DO Hospitalization Condition: Stable Hospital course: Patient 69-year-old female with a history of hypertension diabetes hyperlipidemia presented with 3 days of nausea vomiting approximately 4-5 times per day. Upon initial work-up in ED patient was found to have elevated troponin at 0.1. Patient also had recently discontinued Metformin secondary to what appeared to be gastritis. No acute EKG changes only cardiomegaly. Patient at present abdominal pain has resolved. No nausea no vomiting. Patient states he feels much better. Patient scheduled for follow-up cardiology evaluation today for elevated troponin. Anticipate discharge pending cardiac work-up. Discharge diagnosis: (1) NSTEMI (non-ST elevated myocardial infarction) suspect type II; no occurrence of chest pain (2) Hypertensive urgency (3) Acute gastritis, unspecified gastritis (4) Nausea and vomiting, Resolved (5) T2DM (type 2 diabetes mellitus) (6) Hyperlipidemia, Mixed (7) Sinus bradycardia, noted while asleep, need sleep study outpt Time spent for discharge: 34 minutes Core Measure Documentation - Palliative Care Palliative Care/ Comfort Measures: Not Applicable - Core Measures Any of the following diagnoses?: none Exam - Constitutional Vitals: Temp Pulse Resp BP Pulse Ox 98 F 69 18 178/66 97 06/05/20 14:32 06/05/20 13:26 06/05/20 13:35 06/05/20 13:35 06/05/20 08:10 Plan Activity: advance as tolerated Weight Bearing Status: Non-Weight Bearing Diet: advance as tolerated Special Instructions: record daily BP diary Follow up with: CHRISTINA TAY DO [Primary Care Provider] - 3-5 Days Prescriptions: amLODIPine 10 mg PO QDAY #30 tablet hydrALAZINE [Apresoline TAB] 25 mg PO Q8HR #90 tablet Furosemide [Lasix TAB] 40 mg PO QDAY #30 tablet Pantoprazole [Protonix] 40 mg PO QDAY #30 tablet
[2020-06-05] MEDS: PRAVASTATIN 40 MG TAB PO SCH (22:16)
[2020-06-05] MEDS: hydrALAZINE 25 MG TAB PO SCH (22:16)
[2020-06-06] MEDS: SODIUM CHLORIDE 0.9% 1000 ML 1,000 ML IV SCH (02:12)
[2020-06-06] MEDS: hydrALAZINE 25 MG TAB PO SCH (06:27)
[2020-06-06] MEDS: INSULIN LISPRO 100 UNIT/ML VIAL 3 mL SUB-Q SCH ×2 (08:59→12:38)
[2020-06-06] MEDS: amLODIPine 10 MG TAB PO SCH (09:27)
[2020-06-06] MEDS: LOSARTAN 50 MG TAB PO SCH (09:27)
[2020-06-06] MEDS: LINAGLIPTIN 5 MG TAB PO SCH (09:28)
[2020-06-06] MEDS: PANTOPRAZOLE 40 MG INJ IV SCH (09:28)
--- NOTE | 2020-06-06 11:00 | Progress Note ---
Assessment and Plan (1) NSTEMI (non-ST elevated myocardial infarction) suspect type II; no occurrence of chest pain -Status post stress test today, will follow the result -Patient initiated on heparin drip, continue aspirin and statin, follow cardiology recommendation (2) Hypertensive urgency -Continue current meds and adjust medications as needed (3) Acute gastritis, unspecified gastritis -Continue PPI (4) Nausea and vomiting, Resolved (5) T2DM (type 2 diabetes mellitus) -Consistent carb diet and SSI (6) Hyperlipidemia, Mixed -Continue statin (7) Sinus bradycardia, noted while asleep, need sleep study outpt -We will stop beta-george and will monitor overnight per cardiology recommendation -Disposition: Pending stress test result. Also patient noted to have several pauses overnight on telemetry with sinus bradycardia. Possible discharge if stress test negative and cleared by cardiology. Subjective Date of service: 06/05/20 Principal diagnosis: Nausea and vomiting, elevated troponin Objective - Constitutional Vitals: Vital Signs - 12hr 06/05/20 06/06/20 06/06/20 23:45 04:22 06:27 Temperature 98.2 F 98.2 F Pulse Rate 64 79 79 Respiratory 16 16 Rate Blood Pressure 136/52 150/56 O2 Sat by Pulse 97 97 Oximetry 06/06/20 06/06/20 06/06/20 09:15 09:26 09:27 Temperature 98.5 F Pulse Rate 93 H 102 H 103 H Respiratory 18 Rate Blood Pressure 140/54 140/50 140/50 O2 Sat by Pulse 97 96 Oximetry - Labs CBC & Chem 7: 06/05/20 04:44 06/04/20 07:02 Labs: Abnormal lab results 06/05/20 06/05/20 06/05/20 Range/Units 16:25 19:22 20:28 Heparin Anti-Xa Level 0.98 H (0.3-0.7) U.I./ml POC Glucose 123 H 158 H (70-105) mg/dL 06/06/20 06/06/20 Range/Units 04:43 08:14 Heparin Anti-Xa Level 0.78 H (0.3-0.7) U.I./ml POC Glucose 123 H (70-105) mg/dL HEART Score - HEART Score Age: > 65 Risk factors: > 3 risk factors or hx of atherosclerotic disease Troponin: Troponin T 0.100 ng/mL (0.00-0.029) H 06/04/20 07:57 Troponin: 1-3x normal limit - Critical Actions Critical Actions: 4-6 pts:12-16.6% risk of adverse cardiac event. Should be admitted
[2020-06-06] MEDS: oxyCODONE /ACETAMINOPHEN 5-325MG TAB PO PRN (11:15)
--- NOTE | 2020-06-06 11:26 | Progress Note ---
Assessment and Plan tte reviewed- EF 45-50%, mild LVH, diastolic dysfunction, mild MR, mild AR. S/p lexiscan MPI stress test yesterday which was negative for ischemia, EF 18% (suspect inaccurate). tele reviewed - in NSR HR 60s - 90s overnight, no pauses or arrhythmias. Currently stable cardiac status. Pt may discharge from cardiology standpoint on present cardiac regimen. Recommend OP sleep study. Recommend pt follow up in our office with Dr. Ziegler within 2 weeks ([phone]). The patient has been seen in conjunction with Dr. Ritchie who agrees with the assessment and plan of care. - Patient Problems (1) NSTEMI (non-ST elevated myocardial infarction) Current Visit: Yes Status: Acute Plan to address problem: suspect type II; no occurrence of chest pain (2) Hypertensive urgency Current Visit: Yes Status: Acute (3) Acute gastritis Current Visit: Yes Status: Acute Qualifiers: Gastritis type: unspecified gastritis (4) Nausea and vomiting Current Visit: Yes Status: Resolved (5) T2DM (type 2 diabetes mellitus) Current Visit: Yes Status: Chronic Qualifiers: Diabetes mellitus terminologist insulin use: without snf use (6) Hyperlipidemia Current Visit: Yes Status: Chronic Qualifiers: Hyperlipidemia type: mixed hyperlipidemia Qualified Code(s): E78.2 - Mixed hyperlipidemia Subjective Date of service: 06/06/20 Principal diagnosis: Nausea and vomiting, elevated troponin Interval history: pt resting in bed, no current cardiac complaints. tele reviewed - in NSR HR 60s - 90s overnight, no pauses or arrhythmias. Objective Last Vital Signs Temp 98.5 F 06/06/20 09:15 Pulse 103 H 06/06/20 09:27 Resp 18 06/06/20 09:15 BP 140/50 06/06/20 09:27 Pulse Ox 96 06/06/20 09:26 - Physical Examination General: No Apparent Distress HEENT: Positive: EOMI, Normocephaly, Mucus Membranes Moist Neck: Positive: neck supple, trachea midline Cardiac: Positive: Reg Rate and Rhythm, S1/S2 Lungs: Positive: Decreased Breath Sounds Neuro: Positive: Grossly Intact Abdomen: Positive: Soft, Active Bowel Sounds. Negative: Tender Skin: Positive: Clear. Negative: Rash Musculoskeletal: Normal Range of Motion Extremities: Present: normal. Absent: edema - Imaging and Cardiology EKG: image reviewed - EKG Sinus rhythms and dysrhythmias: sinus rhythm Repolarization changes or abnormalities: repolarization abn secondary to ventricular hypertrophy
[2020-06-06] MEDS ORDERED: FUROSEMIDE 40 MG TAB PO SCH (12:00)
[2020-06-06] MEDS ORDERED: hydrALAZINE 25 MG TAB PO SCH (14:00)
[2020-06-06 14:03] VITALS: BP 130/56
[2020-06-06] MEDS ORDERED: PANTOPRAZOLE 40 MG TAB PO SCH (16:30)
--- NOTE | 2020-06-09 20:05 | Treadmill Report ---
MYOCARDIAL PERFUSION IMAGING REPORT This is being done on a 69-year-old female with complaints of chest pain. The patient also has complaints of nausea and vomiting at the time of admission. The patient's baseline EKG showed sinus rhythm within normal limits. The patient received IV regadenoson injection without any significant side effects. EKG did not show any significant changes. The patient had myocardial perfusion imagings were performed at rest using technetium 99m sestamibi followed by perfusion images along with gating performed post-vasodilation with IV regadenoson. Perfusion images at rest and post-vasodilation were found to be normal. Transient ischemic dilation ratio was found to be 1.08. However, gated studies showed markedly dilated left ventricle with severe diffuse hypokinesis, calculated ejection fraction of 18%. FINAL IMPRESSION: 1. The patient tolerated IV regadenoson well. 2. Negative for angina and EKG did not show any significant ischemic changes. 3. No perfusion defects to suggest ischemia noted. 4. Severely abnormal ejection fraction noted with markedly dilated left ventricle. This can be artifactual would correlate with other modality like echocardiogram before her ejection fraction. Prognostic significance of this study is not clear. JOB# [id number] ERIKA/SERAFIN
== END 2020-06-06 14:20 | disposition home or self-care (01) ==
LOC: ED 10:39 → 4A 14:06
PROVIDERS: ADMIT Internal Medicine; ATTEND Internal Medicine
DX: I21.4 Non-ST elevation (NSTEMI) myocardial infarction (principal); K29.00 Acute gastritis without bleeding; R11.2 Nausea with vomiting, unspecified; R19.7 Diarrhea, unspecified; I16.0 Hypertensive urgency; I10 Essential (primary) hypertension; E11.9 Type 2 diabetes mellitus without complications; E78.2 Mixed hyperlipidemia; R79.89 Other specified abnormal findings of blood chemistry; R00.1 Bradycardia, unspecified; Z90.710 Acquired absence of both cervix and uterus; Z79.899 Other long term (current) drug therapy; Z88.5 Allergy status to narcotic agent
CPT/HCPCS: 36415; 71046; 78452; 80053; 80061; 81001; 82962; 83036; 83690; 84484; 85014; 85018; 85025; 85049; 85520; 85610; 85730; 93005; 93017; 93306; 96361; 96365; 96366; 96372; 96375; 96376; 99285; A9270; A9502; C9113; G0378; J1644; J1650; J2405; J2785; J7030